=== PATIENT | female | born 1990 | race African-American/Black ===

== ENCOUNTER 2022-12-05 21:46 | Emergency (ER) | payer OTHER ==
--- OUTSIDE RECORDS SUMMARY | 2022-12-05 21:52 | XMS REPORT | Continuity of Care Document ---
:1990 Author Organization [facility] t Address [address] [place] [address]. [address] [place] [address] Support Name Relationship Address Phone Isela Keller Parent Unavailable [phone] Unavailable [id number] [place] [address] Healthcare Proxy, None O Unavailable Unavailab le Primary Caregiver O Unavailable Unavailable Nae Bonilla Unavailable Unavailable Angela Collins V [address] [facility] [id number] [place], [place] [phone] Trina Miranda O Unavailable Unavailable Manjula Lorenzana O Unavailable Unavailable Bortner, Denise O Unavailable Unavailable Fatoumataelva Bowie O Unavailable Unavailable Azul Mccarty V [address] [facility] [id number] [place] [address] Legal Guardian O Unavailable Unavailable Awilda Diehl, None O Unavailable Unavailabl e Cantrell, Monet O Unavailable Unavailable Blue, Gladys O [address] [place] [place] [address] Henderson, Altagracia O Unavailable Unavailable Montes (Legal Guardian), Besy O Unavailable Unav ailable Hernandez (Primary Caregiver), O Unavailable Unava ilable Zhang Hoytallero( Primary O [address] Unavailable Caregiver), [place] [address] unknown, unknown Mother [address] [facility] [address] [place] [address] UN Unavailable Unavailable Unavailable Nae Colón Mother [address] [facility] Unavailabl e [address] [place] [address] Care Team Providers Name Role Phone [facility] Primary Care Physician [phone] [email or web address] Attending Clinician Unavailable Sarika Veras MD Attending Clinician [phone] Diann PAIGE Mai Attending Clinician Unavailable Lesvia Langford MD Attending Clinician Allan Manuel Attending Clinician Unavailable Azul Mccarty Attending Clinician [phone] Corie Tidwell Attending Clinician Unavailable Shoshana Brewer RN Attending Clinician Unavailable Acacia Guerrero Attending Clinician Unavailable Destinee Gregory Attending Clinician Unavailable Tete GONZALEZC, Juan Attending Clinician Maricruz BAKER, Sherry Bentley Attending Clinician Juan BAKER, Rodolfo Rivas Attending Clinician Gardenia Nichols Attending Clinician Unavailable Angela Collins Attending Clinician [phone] Valeri Ibarra Attending Clinician [phone] Erkia Cruz Attending Clinician [phone] SUDHAKAR HALEY Attending Clinician Unavailable Charla Orozco LCSW Attending Clinician Unavailable Annel Tidwell Attending Clinician [phone] Shelia De La Cruz Attending Clinician Unavailable Amelie Pratt Attending Clinician [phone] Susana Joya Attending Clinician Unavailable Susan Clinton Attending Clinician Unavailable Aziza Otero Attending Clinician Unavailable Chichi Clinton Attending Clinician Unavailable Teodora Siddiqui Attending Clinician Unavailable Rishi Garza Attending Clinician [phone] Fatoumata Sanchez Attending Clinician Unavailable Soraida Caban Attending Clinician Unavailable Anna Gonzalez Attending Clinician Unavailable Dia Carter Attending Clinician [phone] Awilda Norman Attending Clinician Unavailable Sonido Caban Attending Clinician [phone] Anjali Bowie Attending Clinician Unavailable Yi Gonzalez Attending Clinician Unavailable Jessica Duff Attending Clinician Unavailable Candelaria Ram Attending Clinician [phone] Rona Ricardo Attending Clinician Unavailable Sraa Gotti Attending Clinician Unavailable Anju Cantu Attending Clinician Unavailable Nicole Kathleen Attending Clinician Unavailable Jaya Cantu Attending Clinician Unavailable Alanna Pop Attending Clinician Unavail able Esther Gudino Attending Clinician Unavailable Allan Manuel Admitting Clinician Unavailable Mclean MD, Sarika Unavailable [phone] Bibiana BAKER, Azul Unavailable [phone] Oz Camilo [facility], Charla Unavailable [phone] Santa BAKER, Amelie Unavailable [phone] King FORREST, Angela Unavailable [phone] Kayla BAKER, Rishi Unavailable [phone] Yo SIMEON Candelaria Carolynn Unavailable Payers Payer Name Policy Type Policy Number Effective Date Expiration Date S kelby [facility] STAR P [id number] 2019 00:00:00 [facility] MEDICAID [id number] 2019 STAR 00:00:00 [facility] STAR MC [id number] 2019 2019 [facility] 00:00:00 00:00:00 Community Health Problems Condition Condition Condition Status Onset Resolution Last Treating Co mments Source Name Details Category Date Date Treatment Clinician Date Overweight Condition Active 2022-03-27 Homer Veras 1- 16:26:[address] OB 00:00: 00 Condition Active 2021-032022-03-27 Homer Veras blues 0-25 16:07:[address] OB 00:00: 00 Contracept Condition Active 2021-032022-03-27 Homer Veras shayne 0-25 16:07:[address] OB counseling 00:00: 00 Maternal Condition Active 2021-032022-03-27 Rito S outwe care for 0-25 16:07:[address] OB unspecifie 00:00: d previous 00 Cough Condition Active 2021-08-20 Bibiana S outwe - 12:49:[address] OB 00:00: 00 BMI 27 - Condition Active 2021-07-16 Bibiana Cruzvazquez 27.9, 5-02 10:16:[address] OB adult 00:00: 00 ADJUSTMENT Condition Active 2021-07-16 Oz Arroyowe DISORDER,W 2-04 09:59:[address] O B / ANXIETY 00:00: [place] 00 , Charla ASCUS Condition Active 2020-04-14 Fabi Pratt uthwe Pap/+HPV 09-08 15:32:[address] OB -PP colpo 00:00: 3/07/05 00 MELANIE 3, Condition Active 2022-03-29 Mclean, Sveta thwe severe 09-08 12:22:[address] OB cervical 00:00: dysplasia 00 Abnormal Condition Active 2022-03-29 Bita Veras outhwe cervical 09-08 12:22:[address] OB Pap 00:00: 00 Hx of Condition Active 2021-07-16 Bita Mccarty outhwe syphilis 09-03 10:16:[address] OB -- 00:00: antepartum 00 2019/treat ed Chronic Chronic Disease Active [facility] pain pain 00:00: Hospita 00 l History of Past Illness Condition Condition Condition Status Onset Resolution Last Treating Co mments Source Name Details Category Date Date Treatment Clinician Date Condition Inactiv 2021-032022-03-27 2022-03-27 Homer Veras examinatio e 00:00:00 16:26:[address] OB n, normal 00:00: 00 Insufficie Condition Inactiv 2022-03-27 2022-03-27 Homer Veras nt e 07-16 00:00:00 16:26:[address] OB 00:00: care, 00 second trimester History of Condition Inactiv 2022-03-27 2022-03-27 Rito Cruzvazquez Preeclamps e 07-16 00:00:00 16:26:[address] OB ia 00:00: 00 Supervisio Condition Inactiv 2022-01-08 2022-01-08 Homer Veras n of other e 12-07 00:00:00 15:45:[address] OB high risk 00:00: pregnancie 00 s, third trimester Insufficie Condition Inactiv 2022-01-082022-01-08 Cruz Veras nt e 12-07 00:00:00 15:45:[address] OB 00:00: care, 00 third trimester Maternal Condition Inactiv 2022-01-08 2022-01-08 Cruz Veras care for e 08-30 00:00:00 15:45:28 Sarika s t OB unspecifie 00:00: d type 00 scar from previous delivery X3 37 Weeks Condition Inactiv 2021-12-14 2021-12-07 [place] Gestation e 12-07 00:00:00 10:06:[address] OB of 00:00: 00 Encounter Condition Inactiv 2021-12-07 2021-12-07 Cruz Mccarty for e 07-16 00:00:00 10:06:[address] OB supervisio 00:00: n of other 00 normal , second trimester 21 Weeks Condition Inactiv 2021-08-23 2021-08-20 [place] Gestation e 08-16 00:00:00 12:49:[address] OB of 00:00: 00 16 Weeks Condition Inactiv 2021-07-23 2021-07-16 [place] Gestation e 07-16 00:00:00 10:16:[address] OB of 00:00: 00 Contracept Condition Inactiv 2021-07-16 2021-07-16 [place] [facility] shayne e 04-14 00:00:00 10:16:[address] OB management 00:00: 00 BMI 28 - Condition Inactiv 2021-07-16 2021-07-16 [place] [facility] 28.9, e 04-14 00:00:00 10:16:[address] OB adult 00:00: 00 Gestationa Condition Inactiv 2021-07-16 2021-07-16 [place] [facility] l e -15 00:00:00 10:16:[address] OB hypertensi 00:00: on, 00 unspecifie d trimester Condition Inactiv 2019-032021-07-16 2021-07-16 [place] , routine e 03-25 00:00:00 10:16:[address] OB follow-up 00:00: 00 38 weeks Condition Inactiv 2020-04-14 2020-04-14 Homer Pratt gestation e 03-31 00:00:00 15:32:[address] OB of 00:00: 00 Anemia in Condition Inactiv 2019-032020-04-14 2020-04-14 Homer Pratt , e -24 00:00:00 15:32:[address] OB third 00:00: trimester 00 Condition Inactiv 2020-04-14 2020-04-14 Santa left Homer ultrasound e 11-28 00:00:00 15:32:[address] OB marker 00:00: with 00 echogenic cardiac focus left-NIPS WNL Human Condition Inactiv 2020-04-14 2020-04-14 Homer Pratt papilloma e 09-08 00:00:00 15:32:[address] OB virus test 00:00: positive 00 Hx of Condition Inactiv 2020-04-14 2020-04-14 Homer Pratt preeclamps e 6-16 00:00:00 15:32:[address] OB ia 00:00: 00 BMI 26 - Condition Inactiv 2020-04-14 2020-04-14 Homer Pratt 26.9, e 6-16 00:00:00 15:32:[address] OB adult 00:00: 00 Gestation Condition Inactiv 2020-03-31 2020-03-31 Homer Collins period e 1-08 00:00:00 11:32:[address] OB greater 00:00: than or 00 equal to 37 weeks UTI, E. Condition Inactiv 2019-032020-03-24 2020-03-24 Homer Collins coli e 2-18 00:00:00 11:15:[address] OB 00:00: 00 36 Weeks Condition Inactiv 2019-032020-03-24 2020-03-24 Homer Collins Gestation e 04-06 00:00:00 11:15:[address] OB of 00:00: 00 Nausea Condition Inactiv 2019-2020-02-05 2020-02-05 DiCrama Coronel e 10-05 00:00:00 12:10:04 , Rishi st OB 00:00: 00 Otitis Condition Inactiv 2020-02-05 2020-02-05 DiCrama [facility] externa, e 08-30 00:00:00 12:10:04 , Rishi s t OB other 00:00: 00 28 Weeks Condition Inactiv 2019-2020-01-31 2020[facility]01-[facility]25 00:00:00 13:46:35 , Candelaria st OB of 00:00: Weust 00 22 weeks Condition Inactiv 2020-01-24 2020-01-24 [facility] gestation e 12-14 00:00:00 13:46:35 , Candelaria st OB of 00:00: Weust 00 Supervisio Condition Inactiv 2020-01-24 2020-01-24 [facility] n of other e 11-28 00:00:00 13:46:35 , Candelaria st OB high risk 00:00: Weust pregnancie 00 s, second trimester Supervisio Condition Inactiv 2019-12-15 2019-12-15 [facility] n high e 08-30 00:00:00 10:04:[address] OB risk 00:00: , 00 first trimester 20 Weeks Condition Inactiv 2019-12-06 2019-11-29 [facility] Gestation e 11-28 00:00:00 09:33:38 , Candelaria st OB of 00:00: Weust 00 12 weeks Condition Inactiv 2019-11-29 2019-11-29 [facility] gestation e 10-05 00:00:00 09:33:38 , Candelaria st OB of 00:00: Weust 00 9 weeks Condition Inactiv 2019-2019-10-06 2019-10-06 Cruz Collins gestation e 08-30 00:00:00 10:51:[address] OB of 00:00: 00 Allergies, Adverse Reactions, Alerts Allergy Allergy Status Severity Reaction(s) Onset Inactive Treating Comm ents Source Name Type Date Date Clinician No Known DA Active [facility] 9- Allergie 00:00: s 00 No Known DA Active [facility] 1-15 Allergie 00:00: s 00 Social History Social Habit Start Date Stop Date Quantity Comments Source History SDOH Alcohol Meth odist Std Drinks Hospital History SDOH Alcohol Meth odist [facility] ASSERTION [facility] Sexual orientation [facility] passive cigarette 2022-07-11 2022-07-11 No [facility] smoke exposure 09:54:00 09:54:00 [facility] if the patient is 2022-07-11 2022-07-11 No [facility] using/has used a 09:54:00 09:54:00 Communit [facility] vaping item, Health Current, Former, Never Used, Not asked PHQ2 Questionairre 2022-07-11 2022-07-11 [facility] Score 09:54:00 09:54:00 [facility] assessment of health 2022-07-11 2022-07-11 Adequate [facility] literacy (NCQA [facility] 09:54:00 09:54:00 [facility] 2014 Standards, Health 3C10) is there any chance 2022-07-11 2022-07-11 No Leg[facility] y that you could be 09:54:00 09:54:00 Communi ty ? Health sexual orientation 2022-07-11 2022-07-11 Heterosexual [facility] 09:54:00 09:54:00 [facility] number of children 2022-07-11 2022-07-11 [facility] 09:54:00 09:54:00 [facility] History of Social 2022-05-06 2022-05-[address] function 00:00:00 00:00:00 Hospital Alcohol intake 2022-05-06 2022-05-06 Ex-drinker [facility] 00:00:00 00:00:00 (finding) Hospital drug use 2022-04-03 2022-04-03 Never [facility] 09:59:53 09:59:53 [facility] alcohol use 2022-04-03 2022-04-03 Never [facility] 09:59:53 09:59:53 [facility] social history E&M 2022-04-03 2022-04-03 Single since [facility] 09:59:53 09:59:53 03/31/20. [facility] Temporary lives Health with her mom and sister and . Her 2 other children 7, 6 y/o are with their father since baby was born. Recently from [place]. No DVMother: "It's getting better."Sister: "my younger best friend."Not homeless. City: [facility]. Pt lives with her mother and sister 22 y.o. and 1 m.o. daughter.Not employed. N/ASex at : Female. Sexual orientation: Heterosexual. Gender identity: Female. Gender of partner(s): Male. Age of first sexual intercourse: 14. Sexually Active: No. N/A"I teach dance. I love cars and sports. I'm openminded, I'd like to experience a lot of things, I just don't know exactly what yet."Denies tob/EtOH/drug use social history 2022-04-03 2022-04-03 reviewed today [facility] reviewed E&M 09:59:53 09:59:53 [facility] condom use 2022-01-08 2022-01-08 Never [facility] 14:53:28 14:53:28 [facility] number of sexual 2022-01-08 2022-01-08 [facility] partners in last 14:53:28 14:53:28 [facility] y year Health Ever had sexual 2022-01-08 2022-01-08 Yes [facility] intercourse? 14:53:28 14:53:28 [facility] time of call 2021-11-30 2021-11-30 11/30/2021 9:15 AM [facility] 09:15:15 09:15:15 [facility] albumin, serum 2021-07-16 2021-07-16 3.8 g/dL [facility] 10:21:00 10:21:00 [facility] History SDOH Alcohol 2020-05-06 2020-05-06 1 Meth odist Frequency 00:00:00 00:00:00 Hospital home/family 2020-04-19 2020-04-19 Apartment. 1 [facility] situation, 11:14:40 11:14:40 [facility] Health family support 2020-04-19 2020-04-19 Temporary lives Legac y 11:14:40 11:14:40 with her mom and Communit y sister and Health . Her 2 other children 7, 6 y/o are with their father since baby was born. Recently from [place]. No DV total number of 2020-04-14 2020-04-14 [facility] lifetime sexual 14:38:36 14:38:36 Community partners Health cat exposure during 2019-08-31 2019-08-31 no Legac y 11:51:19 11:51:19 [facility] Health Have you traveled to 2019-08-31 2019-08-31 no Lega cy any zika virus 11:51:19 11:51:19 Community infected areas? Health Sex Assigned At [birth year] [facility] 00:00:00 00:00:00 Hospital Smoking Status Start Date Stop Date Source Tobacco smoking consumption unknown [facility] Never smoked tobacco (finding) L egacy [facility] Medications Ordered Filled Start Stop Current Ordering Indication Dosage Frequency Signature Comments Components Source Medication Medication Date Date Medication? Clinician (SIG) Name Name MACIELMICHELLERIANNA 2021-03 Yes Sarika 1 Insert 1 Cruzwe (ETONOGESTR 0-25 Rito BAK[address] ring into st OB EL-ETHINYL 00:00: vagina for ESTRADIOL) 00 3 weeks. 0.12-0.015 Then MG/24HR remove for RING one week. Repeat each month amoxicillin 2021-03- No 1{tbl} Q12H Take 1 M ethodi -pot 0-19 10-[address] clavulanate 00:00: 04:59 mouth Hosp connie (AUGMENTIN) 00 :00 every 12 l 875-125 mg (twelve) per tablet hours for 10 days. acetaminoph 2021-03 No 1000mg Q6H Take 2 M ethodi en (Tylenol 0-19 10-[address] Extra 00:00: 04:59 (1,000 mg Hospit a Strength) 00 :00 total) by l 500 MG mouth tablet every 6 (six) hours as needed for mild pain or moderate pain for up to 7 days. ibuprofen 2021-03 No 600mg Q6H Take 1 Meth valencia (ADVIL) 600 0-19 10-[address] MG tablet 00:00: 04:59 (600 mg Hosp connie 00 :00 total) by l mouth every 6 (six) hours as needed for mild pain for up to 7 days. VITAFOL-ONE Yes Azul 1 Take 1 S outhwe ( 07-16 Bibiana BAK[address] capsule by st OB VIT-FEPOLY- 00:00: mouth once FA-DHA) 00 a day 29-1-200 MG CAPS ASPIRIN EC Azul 1 Take 1 S outhwe (ASPIRIN) 07-16 10-25 Bibiana BAKER tablet by st OB 81 MG TBEC 00:00: 00:00 mouth once 00 :00 a day amoxicillin 2020-03- No 875mg Q.5D Take 1 Me thodi (AMOXIL) 03-[address] 875 MG 00:00: 05:59 (875 mg Hospita tablet 00 :00 total) by l mouth 2 (two) times a day for 10 days. amoxicillin 2020-03 No 875mg Q.5D Take 1 Me thodi (AMOXIL) 03-[address] 875 MG 00:00: 05:59 (875 mg Hospita tablet 00 :00 total) by l mouth 2 (two) times a day for 10 days. ibuprofen 2020-03- No 600mg Q8H Take 1 Meth valencia (ADVIL) 600 03-31- tablet st MG tablet 00:00: 05:59 (600 mg Hosp connie 00 :00 total) by l mouth every 8 (eight) hours as needed for mild pain for up to 5 days. HYDROcodone 2020-03- No [id number] 1{tbl} Q8H Take 1 Methodi -acetaminop -15 - tablet by st hen (NORCO) 00:00: 05:59 mouth Hosp [facility] 5-325 mg 00 :00 every 8 l per tablet (eight) hours as needed for moderate pain for up to 5 days .acute pain. Max Daily Amount: 3 tablets ibuprofen 2020-03- No 600mg Q8H Take 1 Meth valencia (ADVIL) 600 -15 - tablet st MG tablet 00:00: 05:59 (600 mg Hosp connie 00 :00 total) by l mouth every 8 (eight) hours as needed for mild pain for up to 5 days. HYDROcodone 2020-03 No [id number] 1{tbl} Q8H Take 1 Methodi -acetaminop 1-15 11-[address] hen (NORCO) 00:00: 05:59 mouth Hosp [facility] 5-325 mg 00 :00 every 8 l per tablet (eight) hours as needed for moderate pain for up to 5 days .acute pain. Max Daily Amount: 3 tablets NUVARING No Valeri Insert per Homer (ETONOGESTR 05-25 Fred BAKER vagina for st OB EL-ETHINYL 00:00: 00:00 3 weeks, ESTRADIOL) 00 :00 then 0.12-0.015 remove for MG/24HR one week. RING Repeat each month ibuprofen No 400mg Q8H Take 1 Meth valecnia (ADVIL) 400 2-20 11-[address] MG tablet 00:00: 00:00 (400 mg Hosp [facility] 00 :00 total) by l mouth every 8 (eight) hours as needed for moderate pain. ibuprofen No 400mg Q8H Take 1 Meth valencia (ADVIL) 400 2-20 11-[address] MG tablet 00:00: 00:00 (400 mg Hosp [facility] 00 :00 total) by l mouth every 8 (eight) hours as needed for moderate pain. PROCARDIA 2021- No Amelie 1{Table 1xD Take 1 S outhwe XL 04-14 Monthy t} tablet by st OB (NIFEDIPINE 00:00: 00:00 mouth once ) 30 MG 00 :00 a day [id number] (CEPHALEXIN 2019-03 No Sonido 1{Table 4xD 1 tablet Southwe ) 500 MG 05-04 Pappadas t} by mouth st OB TABS 00:00: 00:00 MD every 6 00 :00 hours for 7 days (FERROUS 2019-03 No Rishi 1{Table 1xD 1 tablet Southwe SULFATE) 04-09 DiClemente t} by mouth st OB 325 (65 Fe) 00:00: 00:00 MD daily MG TABS 00 :00 ADULT 2020- No Angela 1{Table 1xD take 1 Southwe ASPIRIN 10-05 Dennis [facility] t} tablet By s t OB REGIMEN 00:00: 00:00 Mouth (ASPIRIN) 00 :00 Every Day 81 MG TBEC ADULT 2020- No Angela 1 1xD take 1 Sveta we ASPIRIN 10-05 Dennis NP tablet By s t OB REGIMEN 00:00: 00:00 Mouth (ASPIRIN) 00 :00 Every Day 81 MG TBEC CITRANATAL 2021- No 1 1 tablet So uthwe HARMONY 08-30- by mouth st OB 27-1-260 MG 00:00: 00:00 once a day CAPS 00 :00 CORTISPORIN 2019- No use 4 Sout hwe OTIC 08-[address] OB SUSPENSION 00:00: 00:00 ear Four (NEOMYCIN-C 00 :00 Times a OL- Day ONZONIUM) Vital Signs Vital Name Observation Time Observation Value Comments Source temperature E&M 2022-07-11 09:54:00 98.7 [degF] [facility] blood pressure, 2022-07-11 09:54:00 95 mm[Hg] [facility] diastolic, second Health observation blood pressure, 2022-07-11 09:54:00 146 mm[Hg] [facility] systolic, second Health observation temperature site 2022-07-11 09:54:00 oral Lega [facility] Health respiratory rate E&M 2022-07-11 09:54:00 18 /min [facility] pulse rate 2022-07-11 09:54:00 83 /min [facility] BMI (body mass 2022-07-11 09:54:00 n/a [facility] index) [facility] Health Body Mass Index 2022-07-11 09:54:00 29.48 kg/m2 [facility] ([facility]) Health weight E&M 2022-07-11 09:54:00 158 [lb_av] [facility] weight in kilograms 2022-07-11 09:54:00 71.82 kg L [facility] E& Health height in 2022-07-11 09:54:00 156.21 cm [facility] centimeters E&M Health Systolic blood 2022-05-06 20:21:12 150 mm[Hg] [facility] Diastolic blood 2022-05-06 20:21:12 108 mm[Hg] [facility] pressure Hospital Heart rate 2022-05-06 20:21:12 86 /min [facility] Body temperature 2022-05-06 20:21:12 36.78 Sandra [facility] Respiratory rate 2022-05-06 20:21:12 20 /min [facility] Body height 2022-05-06 20:21:12 157.5 cm [facility] Body weight 2022-05-06 20:21:12 68.04 kg [facility] BMI 2022-05-06 20:21:12 27.44 kg/m2 [facility] Oxygen saturation in 2022-05-06 20:21:12 98 /min [facility]terial blood by Hospital Pulse oximetry temperature E&M 2022-04-03 09:59:53 98.0 [degF] [facility] Health pulse rate 2022-04-03 09:59:53 87 /min [facility] Diastolic blood 2022-04-03 09:59:53 99 mm[Hg] [facility] Systolic blood 2022-04-03 09:59:53 158 mm[Hg] [facility] pressure Health respiratory rate E&M 2022-04-03 09:59:53 14 /min [facility] temperature site 2022-04-03 09:59:53 oral Lega [facility] Health BMI (body mass 2022-04-03 09:59:53 n/a [facility] index) [facility] Health Body Mass Index 2022-04-03 09:59:53 28.78 kg/m2 [facility] ([facility]) Health height in 2022-04-03 09:59:53 [facility] E&M Health weight E&M 2022-04-03 09:59:53 154.25 [lb_av] [facility] Health weight in kilograms 2022-04-03 09:59:53 70.11 kg L [facility] E&M Health blood pressure, 2022-03-27 15:32:15 98 mm[Hg] [facility] Health observation blood pressure, 2022-03-27 15:32:15 152 mm[Hg] [facility] systolic, second Health observation pulse rate 2022-03-27 15:32:15 92 /min [facility] Health temperature E&M 2022-03-27 15:32:15 97.9 [degF] [facility] Health BMI (body mass 2022-03-27 15:32:15 n/a [facility] index) percentile Health Body Mass Index 2022-03-27 15:32:15 28.80 kg/m2 [facility] (Ratio) Health weight E&M 2022-03-27 15:32:15 154.38 [lb_av] [facility] Health weight in kilograms 2022-03-27 15:32:15 70.17 kg L [facility] E&M Health height in 2022-03-27 15:32:15 156.21 cm [facility] centimeters E&M Health Body Mass Index 2022-01-08 14:53:28 28.62 kg/m2 [facility] (Ratio) Health respiratory rate E&M 2022-01-08 14:53:28 13 /min [facility] Health blood pressure, 2022-01-08 14:53:28 90 mm[Hg] [facility] diastolic, second Health observation blood pressure, 2022-01-08 14:53:28 133 mm[Hg] [facility] systolic, second Health observation temperature site 2022-01-08 14:53:28 oral Lega [facility] Health pulse rate 2022-01-08 14:53:28 85 /min [facility] temperature E&M 2022-01-08 14:53:28 98.4 [degF] [facility] Health weight E&M 2022-01-08 14:53:28 153.4 [lb_av] [facility] Health height E&M 2022-01-08 14:53:28 61.5 [in_i] [facility] blood pressure, 2021-12-07 09:37:22 88 mm[Hg] [facility] diastolic Health blood pressure, 2021-12-07 09:37:22 140 mm[Hg] [facility] systolic Health pulse rate 2021-12-07 09:37:22 90 /min [facility] temperature E&M 2021-12-07 09:37:22 98.4 [degF] [facility] [facility] weight E&M 2021-12-07 09:37:22 167.6 [lb_av] [facility] 2021-12-07 09:37:22 61.5 [in_i] [facility] Body Mass Index 2021-12-07 09:37:22 31.27 kg/m2 [facility] pulse rate #1 2021-12-07 09:37:22 109 /min [facility] 2021-12-07 09:37:22 oral Lega cy [facility] temperature E&M 2021-08-16 11:24:34 98.3 [degF] [facility] pressure, 2021-08-16 11:24:34 78 mm[Hg] [facility] blood pressure, 2021-08-16 11:24:34 115 mm[Hg] [facility] systolic Health pulse rate 2021-08-16 11:24:34 88 /min [facility] weight E&M 2021-08-16 11:24:34 149 [lb_av] [facility] height E&M 2021-08-16 11:24:34 61.5 [in_i] [facility] Body Mass Index 2021-08-16 11:24:34 27.80 kg/m2 [facility] temperature site 2021-08-16 11:24:34 oral Lega cy [facility] blood pressure, 2021-07-16 09:08:02 73 mm[Hg] [facility] diastolic Health blood pressure, 2021-07-16 09:08:02 117 mm[Hg] [facility] systolic Health pulse rate 2021-07-16 09:08:02 89 /min [facility] temperature E&M 2021-07-16 09:08:02 98.8 [degF] [facility]&M 2021-07-16 09:08:02 146 [lb_av] [facility] height E&M 2021-07-16 09:08:02 61.5 [in_i] [facility] Body Mass Index 2021-07-16 09:08:02 27.24 kg/m2 [facility] 2021-07-16 09:08:02 oral Lega [facility] Systolic blood 2021-05-04 21:06:07 146 mm[Hg] Method [facility] Diastolic blood 2021-05-04 21:06:07 84 mm[Hg] [facility] Heart rate 2021-05-04 21:06:07 94 /min [facility] Body temperature 2021-05-04 21:06:07 36.67 Sandra [facility] Respiratory rate 2021-05-04 21:06:07 17 /min [facility] Oxygen saturation in 2021-05-04 21:06:07 99 /min [facility] blood by Hospital Pulse oximetry Body height 2021-05-04 21:04:00 157.5 cm [facility] Body weight 2021-05-04 21:04:00 63.504 kg [facility] BMI 2021-05-04 21:04:00 25.61 kg/m2 [facility] 2020-05-26 06:16:29 36.1\\S\\97 Weight 2020-05-26 06:16:29 92623.263\\S\\2384 Weight Measurement 2020-05-26 06:16:29 Standing Scale Method Respiratory 2020-05-26 06:16:29 No respiratory distress /min Pulse Rate 2020-05-26 06:16:29 78 /min blood pressure, 2020-04-14 14:38:36 94 mm[Hg] [facility] diastolic, second Health observation blood pressure, 2020-04-14 14:38:36 143 mm[Hg] [facility] observation pulse rate #2 2020-04-14 14:38:36 76 /min [facility] temperature E&M 2020-04-14 14:38:36 98.2 [degF] [facility] weight E&M 2020-04-14 14:38:36 151 [lb_av] [facility] height E&M 2020-04-14 14:38:36 61.5 [in_i] [facility] Body Mass Index 2020-04-14 14:38:36 28.17 kg/m2 [facility] Health pulse rate #1 2020-04-14 14:38:36 76 /min [facility] temperature site 2020-04-14 14:38:36 oral Lega [facility] Respiratory 2020-04-14 00:16:38 No respiratory distress /min Pulse Rate 2020-04-14 00:16:38 78 /min Temperature 2020-04-14 00:16:38 36.1\\S\\97 Weight 2020-04-14 00:16:38 19094.263\\S\\2384 Weight Measurement 2020-04-14 00:16:38 Standing Scale Method Pulse Rate 2020-04-13 13:50:36 78 /min Temperature 2020-04-13 13:50:36 36.1\\S\\97 Weight 2020-04-13 13:50:36 96345.263\\S\\2384 Weight Measurement 2020-04-13 13:50:36 Standing Scale Method WEIGHT 2020-04-13 13:48:00 67.734603 kg Initial DRG Weight: 2020-04-12 14:33:49 0.8871 Working DRG Weight: 2020-04-12 14:33:49 0.8871 OSEAS CHARGE Pulse 2020-04-12 14:33:49 Single Pulse Ox Oximetry /min NB Weight 2020-04-12 14:33:49 2320\\S\\81.836 Have you Lost Weight 2020-04-12 14:33:49 No Without Trying in the Past 6 Months? Attempted 2020-04-12 14:33:49 N Monitor Temp Source 2020-04-12 14:33:49 Temporal 02 Sat by Pulse 2020-04-12 14:33:49 99 /min Oximetry Body Mass Index 2020-04-12 14:33:49 28.9 Height 2020-04-12 14:33:49 157.48\\S\\62 Pulse Rate 2020-04-12 14:33:49 80 /min Pulse Strength 2020-04-12 14:33:49 Normal /min Pulse Assessment 2020-04-12 14:33:49 Palpation /min Method Respiratory Rate 2020-04-12 14:33:49 18 /min Respiratory Depth 2020-04-12 14:33:49 Normal /min Respiratory Effort 2020-04-12 14:33:49 Spontaneous /min Respiratory Pattern 2020-04-12 14:33:49 Normal /min Temperature 2020-04-12 14:33:49 36.7\\S\\98.1 Weight 2020-04-12 14:33:49 46227.594\\S\\2528 Weight Measurement 2020-04-12 14:33:49 Estimated by Method Patient Initial DRG Weight: 2020-04-03 20:01:12 0.8871 Working DRG Weight: 2020-04-03 20:01:12 0.8871 OSEAS CHARGE Pulse 2020-04-03 20:01:12 Single Pulse Ox Oximetry /min NB Weight 2020-04-03 20:01:12 2320\\S\\81.836 Have you Lost Weight 2020-04-03 20:01:12 No Without Trying in the Past 6 Months? Attempted 2020-04-03 20:01:12 N Monitor Temp Source 2020-04-03 20:01:12 Temporal 02 Sat by Pulse 2020-04-03 20:01:12 99 /min Oximetry Body Mass Index 2020-04-03 20:01:12 28.9 Height 2020-04-03 20:01:12 157.48\\S\\62 Pulse Rate 2020-04-03 20:01:12 80 /min Pulse Strength 2020-04-03 20:01:12 Normal /min Pulse Assessment 2020-04-03 20:01:12 Palpation /min Method Respiratory Rate 2020-04-03 20:01:12 18 /min Respiratory Depth 2020-04-03 20:01:12 Normal /min Respiratory Effort 2020-04-03 20:01:12 Spontaneous /min Respiratory Pattern 2020-04-03 20:01:12 Normal /min Temperature 2020-04-03 20:01:12 36.7\\S\\98.1 Weight 2020-04-03 20:01:12 45651.594\\S\\2528 Weight Measurement 2020-04-03 20:01:12 Estimated by Method Patient Initial DRG Weight: 2020-04-03 15:25:06 0.8871 Working DRG Weight: 2020-04-03 15:25:06 0.8871 OSEAS CHARGE Pulse 2020-04-03 15:25:06 Single Pulse Ox Oximetry /min NB Weight 2020-04-03 15:25:06 2320\\S\\81.836 Have you Lost Weight 2020-04-03 15:25:06 No Without Trying in the Past 6 Months? Attempted 2020-04-03 15:25:06 N Monitor Temp Source 2020-04-03 15:25:06 Temporal 02 Sat by Pulse 2020-04-03 15:25:06 99 /min Oximetry Body Mass Index 2020-04-03 15:25:06 28.9 Height 2020-04-03 15:25:06 157.48\\S\\62 Pulse Rate 2020-04-03 15:25:06 80 /min Pulse Strength 2020-04-03 15:25:06 Normal /min Pulse Assessment 2020-04-03 15:25:06 Palpation /min Method Respiratory Rate 2020-04-03 15:25:06 18 /min Respiratory Depth 2020-04-03 15:25:06 Normal /min Respiratory Effort 2020-04-03 15:25:06 Spontaneous /min Respiratory Pattern 2020-04-03 15:25:06 Normal /min Temperature 2020-04-03 15:25:06 36.7\\S\\98.1 Weight 2020-04-03 15:25:06 73739.594\\S\\2528 Weight Measurement 2020-04-03 15:25:06 Estimated by Method Patient Initial DRG Weight: 2020-04-03 04:56:18 0.8871 Working DRG Weight: 2020-04-03 04:56:18 0.8871 NB Weight 2020-04-03 04:56:18 2320\\S\\81.836 Have you Lost Weight 2020-04-03 04:56:18 No Without Trying in the Past 6 Months? Attempted 2020-04-03 04:56:18 N Monitor Temp Source 2020-04-03 04:56:18 Temporal 02 Sat by Pulse 2020-04-03 04:56:18 99 /min Oximetry Body Mass Index 2020-04-03 04:56:18 28.9 Height 2020-04-03 04:56:18 157.48\\S\\62 Pulse Rate 2020-04-03 04:56:18 85 /min Pulse Strength 2020-04-03 04:56:18 Normal /min Pulse Assessment 2020-04-03 04:56:18 Palpation /min Method Respiratory Rate 2020-04-03 04:56:18 18 /min Respiratory Depth 2020-04-03 04:56:18 Normal /min Respiratory Effort 2020-04-03 04:56:18 Spontaneous /min Respiratory Pattern 2020-04-03 04:56:18 Normal /min Temperature 2020-04-03 04:56:18 36.9\\S\\98.4 Weight 2020-04-03 04:56:18 88446.594\\S\\2528 Weight Measurement 2020-04-03 04:56:18 Estimated by Method Patient Initial DRG Weight: 2020-04-03 04:55:47 0.8871 Working DRG Weight: 2020-04-03 04:55:47 0.8871 NB Weight 2020-04-03 04:55:47 2320\\S\\81.836 Have you Lost Weight 2020-04-03 04:55:47 No Without Trying in the Past 6 Months? Attempted 2020-04-03 04:55:47 N Monitor Temp Source 2020-04-03 04:55:47 Temporal 02 Sat by Pulse 2020-04-03 04:55:47 99 /min Oximetry Body Mass Index 2020-04-03 04:55:47 28.9 Height 2020-04-03 04:55:47 157.48\\S\\62 Pulse Rate 2020-04-03 04:55:47 85 /min Pulse Strength 2020-04-03 04:55:47 Normal /min Pulse Assessment 2020-04-03 04:55:47 Palpation /min Method Respiratory Rate 2020-04-03 04:55:47 18 /min Respiratory Depth 2020-04-03 04:55:47 Normal /min Respiratory Effort 2020-04-03 04:55:47 Spontaneous /min Respiratory Pattern 2020-04-03 04:55:47 Normal /min Temperature 2020-04-03 04:55:47 36.9\\S\\98.4 Weight 2020-04-03 04:55:47 37109.594\\S\\2528 Weight Measurement 2020-04-03 04:55:47 Estimated by Method Patient NB Weight 2020-04-01 01:01:58 2320\\S\\81.836 Have you Lost Weight 2020-04-01 01:01:58 No Without Trying in the Past 6 Months? Attempted 2020-04-01 01:01:58 N Monitor Temp Source 2020-04-01 01:01:58 Temporal 02 Sat by Pulse 2020-04-01 01:01:58 100 /min Oximetry Body Mass Index 2020-04-01 01:01:58 28.9 Height 2020-04-01 01:01:58 157.48\\S\\62 Pulse Rate 2020-04-01 01:01:58 89 /min Respiratory Rate 2020-04-01 01:01:58 17 /min Respiratory Depth 2020-04-01 01:01:58 Normal /min Respiratory Effort 2020-04-01 01:01:58 Spontaneous /min Respiratory Pattern 2020-04-01 01:01:58 Normal /min Temperature 2020-04-01 01:01:58 36.2\\S\\97.2 Weight 2020-04-01 01:01:58 01052.594\\S\\2528 Weight Measurement 2020-04-01 01:01:58 Estimated by Method Patient NB Weight 2020-04-01 00:58:02 2320\\S\\81.836 Have you Lost Weight 2020-04-01 00:58:02 No Without Trying in the Past 6 Months? Attempted 2020-04-01 00:58:02 N Monitor Temp Source 2020-04-01 00:58:02 Temporal 02 Sat by Pulse 2020-04-01 00:58:02 100 /min Oximetry Body Mass Index 2020-04-01 00:58:02 28.9 Height 2020-04-01 00:58:02 157.48\\S\\62 Pulse Rate 2020-04-01 00:58:02 89 /min Respiratory Rate 2020-04-01 00:58:02 17 /min Respiratory Depth 2020-04-01 00:58:02 Normal /min Respiratory Effort 2020-04-01 00:58:02 Spontaneous /min Respiratory Pattern 2020-04-01 00:58:02 Normal /min Temperature 2020-04-01 00:58:02 36.2\\S\\97.2 Weight 2020-04-01 00:58:02 24760.594\\S\\2528 Weight Measurement 2020-04-01 00:58:02 Estimated by Method Patient NB Weight 2020-04-01 00:31:01 2320\\S\\81.836 Have you Lost Weight 2020-04-01 00:31:01 No Without Trying in the Past 6 Months? Attempted 2020-04-01 00:31:01 N Monitor Temp Source 2020-04-01 00:31:01 Temporal 02 Sat by Pulse 2020-04-01 00:31:01 100 /min Oximetry Body Mass Index 2020-04-01 00:31:01 28.9 Height 2020-04-01 00:31:01 157.48\\S\\62 Pulse Rate 2020-04-01 00:31:01 89 /min Respiratory Rate 2020-04-01 00:31:01 17 /min Respiratory Depth 2020-04-01 00:31:01 Normal /min Respiratory Effort 2020-04-01 00:31:01 Spontaneous /min Respiratory Pattern 2020-04-01 00:31:01 Normal /min Temperature 2020-04-01 00:31:01 36.2\\S\\97.2 Weight 2020-04-01 00:31:01 24697.594\\S\\2528 Weight Measurement 2020-04-01 00:31:01 Estimated by Method Patient WEIGHT 2020-03-31 16:39:00 71.637231 kg HEIGHT 2020-03-31 16:39:00 157.48 cm Body Mass Index 2020-03-31 16:04:46 28.9 Height 2020-03-31 16:04:46 157.48\\S\\62 Respiratory Depth 2020-03-31 16:04:46 Normal /min Respiratory Effort 2020-03-31 16:04:46 Spontaneous /min Respiratory Pattern 2020-03-31 16:04:46 Normal /min Weight 2020-03-31 16:04:46 50244.594\\S\\2528 Body Mass Index 2020-03-31 16:02:43 28.9 Height 2020-03-31 16:02:43 157.48\\S\\62 Respiratory Depth 2020-03-31 16:02:43 Normal /min Respiratory Effort 2020-03-31 16:02:43 Spontaneous /min Respiratory Pattern 2020-03-31 16:02:43 Normal /min Weight 2020-03-31 16:02:43 81022.594\\S\\2528 Body Mass Index 2020-03-31 15:55:32 28.9 Height 2020-03-31 15:55:32 157.48\\S\\62 Respiratory Depth 2020-03-31 15:55:32 Normal /min Respiratory Effort 2020-03-31 15:55:32 Spontaneous /min Respiratory Pattern 2020-03-31 15:55:32 Normal /min Weight 2020-03-31 15:55:32 94005.594\\S\\2528 Body Mass Index 2020-03-31 15:54:00 28.9 Height 2020-03-31 15:54:00 157.48\\S\\62 Respiratory Depth 2020-03-31 15:54:00 Normal /min Respiratory Effort 2020-03-31 15:54:00 Spontaneous /min Respiratory Pattern 2020-03-31 15:54:00 Normal /min Weight 2020-03-31 15:54:00 62078.594\\S\\2528 Body Mass Index 2020-03-31 15:33:32 28.9 Height 2020-03-31 15:33:32 157.48\\S\\62 Respiratory Depth 2020-03-31 15:33:32 Normal /min Respiratory Effort 2020-03-31 15:33:32 Spontaneous /min Respiratory Pattern 2020-03-31 15:33:32 Normal /min Weight 2020-03-31 15:33:32 91346.594\\S\\2528 Body Mass Index 2020-03-31 15:28:25 28.9 Height 2020-03-31 15:28:25 157.48\\S\\62 Respiratory Depth 2020-03-31 15:28:25 Normal /min Respiratory Effort 2020-03-31 15:28:25 Spontaneous /min Respiratory Pattern 2020-03-31 15:28:25 Normal /min Weight 2020-03-31 15:28:25 73980.594\\S\\2528 Body Mass Index 2020-03-31 15:27:22 28.9 Height 2020-03-31 15:27:22 157.48\\S\\62 Respiratory Depth 2020-03-31 15:27:22 Normal /min Respiratory Effort 2020-03-31 15:27:22 Spontaneous /min Respiratory Pattern 2020-03-31 15:27:22 Normal /min Weight 2020-03-31 15:27:22 10996.594\\S\\2528 Body Mass Index 2020-03-31 15:21:15 28.9 Height 2020-03-31 15:21:15 157.48\\S\\62 Respiratory Depth 2020-03-31 15:21:15 Normal /min Respiratory Effort 2020-03-31 15:21:15 Spontaneous /min Respiratory Pattern 2020-03-31 15:21:15 Normal /min Weight 2020-03-31 15:21:15 56226.594\\S\\2528 Body Mass Index 2020-03-31 15:02:14 28.9 Height 2020-03-31 15:02:14 157.48\\S\\62 Respiratory Depth 2020-03-31 15:02:14 Normal /min Respiratory Effort 2020-03-31 15:02:14 Spontaneous /min Respiratory Pattern 2020-03-31 15:02:14 Normal /min Weight 2020-03-31 15:02:14 14599.594\\S\\2528 Body Mass Index 2020-03-31 14:22:17 28.9 Height 2020-03-31 14:22:17 157.48\\S\\62 Weight 2020-03-31 14:22:17 76567.594\\S\\2528 WEIGHT 2020-03-31 14:21:00 71.491402 kg HEIGHT 2020-03-31 14:21:00 157.48 cm blood pressure, 2020-03-31 10:56:14 92 mm[Hg] [facility] diastolic, second Health observation blood pressure, 2020-03-31 10:56:14 146 mm[Hg] [facility] systolic, second Health observation pulse rate #2 2020-03-31 10:56:14 85 /min [facility] temperature E&M 2020-03-31 10:56:14 98.4 [degF] [facility] 2020-03-31 10:56:14 61.5 [in_i] [facility] 2020-03-31 10:56:14 158.6 [lb_av] [facility] Body Mass Index 2020-03-31 10:56:14 29.59 kg/m2 [facility] pulse rate #1 2020-03-31 10:56:14 85 /min [facility] temperature site 2020-03-31 10:56:14 oral Lega [facility] Health blood pressure, 2020-03-24 10:56:54 84 mm[Hg] [facility] blood pressure, 2020-03-24 10:56:54 128 mm[Hg] [facility] systolic Health pulse rate 2020-03-24 10:56:54 86 /min [facility] temperature E&M 2020-03-24 10:56:54 98.4 [degF] [facility] E&M 2020-03-24 10:56:54 159.8 [lb_av] [facility] height E&M 2020-03-24 10:56:54 61.5 [in_i] [facility] Body Mass Index 2020-03-24 10:56:54 29.81 kg/m2 [facility] temperature site 2020-03-24 10:56:54 oral Lega cy [facility] Health blood pressure, 2020-03-18 11:19:00 84 mm[Hg] [facility] diastolic Health blood pressure, 2020-03-18 11:19:00 130 mm[Hg] [facility] pulse rate 2020-03-18 11:19:00 81 /min [facility] temperature E&M 2020-03-18 11:19:00 97.9 [degF] [facility] height E&M 2020-03-18 11:19:00 61.5 [in_i] [facility] weight E&M 2020-03-18 11:19:00 162 [lb_av] [facility] Body Mass Index 2020-03-18 11:19:00 30.22 kg/m2 [facility] temperature site 2020-03-18 11:19:00 oral Lega cy [facility] Health blood pressure, 2020-03-01 10:41:33 79 mm[Hg] [facility] diastolic Health blood pressure, 2020-03-01 10:41:33 114 mm[Hg] [facility] systolic Health temperature E&M 2020-03-01 10:41:33 98.6 [degF] [facility] weight E&M 2020-03-01 10:41:33 159 [lb_av] [facility] height E&M 2020-03-01 10:41:33 61.5 [in_i] [facility] Body Mass Index 2020-03-01 10:41:33 29.66 kg/m2 [facility] temperature site 2020-03-01 10:41:33 oral Lega cy [facility] Health blood pressure, 2020-02-05 11:04:51 80 mm[Hg] [facility] diastolic Health blood pressure, 2020-02-05 11:04:51 118 mm[Hg] [facility] systolic Health pulse rate 2020-02-05 11:04:51 98 /min [facility] temperature E&M 2020-02-05 11:04:51 98.8 [degF] [facility] weight E&M 2020-02-05 11:04:51 157 [lb_av] [facility] height E&M 2020-02-05 11:04:51 61.5 [in_i] [facility] Body Mass Index 2020-02-05 11:04:51 29.29 kg/m2 [facility] temperature site 2020-02-05 11:04:51 oral Lega cy [facility] Health blood pressure, 2020-01-24 12:00:35 87 mm[Hg] [facility] diastolic Health blood pressure, 2020-01-24 12:00:35 135 mm[Hg] [facility] systolic Health pulse rate 2020-01-24 12:00:35 99 /min [facility] temperature E&M 2020-01-24 12:00:35 98.1 [degF] [facility] weight E&M 2020-01-24 12:00:35 155 [lb_av] [facility] height E&M 2020-01-24 12:00:35 61.5 [in_i] [facility] Body Mass Index 2020-01-24 12:00:35 28.92 kg/m2 [facility] temperature site 2020-01-24 12:00:35 oral Lega cy [facility] Health blood pressure, 2019-12-15 09:23:05 86 mm[Hg] [facility] diastolic Health blood pressure, 2019-12-15 09:23:05 131 mm[Hg] [facility] systolic Health pulse rate 2019-12-15 09:23:05 90 /min [facility] temperature E&M 2019-12-15 09:23:05 98.5 [degF] [facility] weight E&M 2019-12-15 09:23:05 155.2 [lb_av] [facility] height E&M 2019-12-15 09:23:05 61.5 [in_i] [facility] Body Mass Index 2019-12-15 09:23:05 28.95 kg/m2 [facility] temperature site 2019-12-15 09:23:05 oral Lega cy [facility] Health blood pressure, 2019-11-29 08:33:11 85 mm[Hg] [facility] diastolic Health blood pressure, 2019-11-29 08:33:11 121 mm[Hg] [facility] systolic Health pulse rate 2019-11-29 08:33:11 78 /min [facility] temperature E&M 2019-11-29 08:33:11 98.7 [degF] [facility] weight E&M 2019-11-29 08:33:11 150 [lb_av] [facility] height E&M 2019-11-29 08:33:11 61.5 [in_i] [facility] Body Mass Index 2019-11-29 08:33:11 27.98 kg/m2 [facility] temperature site 2019-11-29 08:33:11 oral Lega cy [facility] temperature E&M 2019-10-06 10:14:09 99.3 [degF] [facility] pulse rate 2019-10-06 10:14:09 105 /[facility] Health blood pressure, 2019-10-06 10:14:09 86 mm[Hg] [facility] diastolic Health blood pressure, 2019-10-06 10:14:09 126 mm[Hg] [facility] systolic Health weight E&M 2019-10-06 10:14:09 145.2 [lb_av] [facility] 2019-10-06 10:14:09 61.5 [in_i] [facility] Body Mass Index 2019-10-06 10:14:09 27.09 kg/m2 [facility] temperature site 2019-10-06 10:14:09 oral Lega cy [facility] Health blood pressure, 2019-09-10 11:16:48 88 mm[Hg] [facility] diastolic Health blood pressure, 2019-09-10 11:16:48 134 mm[Hg] [facility] systolic Health pulse rate 2019-09-10 11:16:48 82 /min [facility] Health temperature E&M 2019-09-10 11:16:48 98.9 [degF] [facility] Health weight E&M 2019-09-10 11:16:48 144.0 [lb_av] [facility] height E&M 2019-09-10 11:16:48 61.5 [in_i] [facility] Body Mass Index 2019-09-10 11:16:48 26.86 kg/m2 [facility] temperature site 2019-09-10 11:16:48 oral Lega [facility] Health blood pressure, 2019-08-31 11:51:19 91 mm[Hg] [facility] diastolic, second Health observation blood pressure, 2019-08-31 11:51:19 138 mm[Hg] [facility] systolic, second Health observation pulse rate 2019-08-31 11:51:19 82 /min [facility] temperature E&M 2019-08-31 11:51:19 99.2 [degF] [facility] weight E&M 2019-08-31 11:51:19 144.6 [lb_av] [facility] height E&M 2019-08-31 11:51:19 61.5 [in_i] [facility] Body Mass Index 2019-08-31 11:51:19 26.98 kg/m2 [facility] pulse rate #1 2019-08-31 11:51:19 96 /min [facility] temperature site 2019-08-31 11:51:19 oral Lega cy [facility] Procedures Procedure Date / Time Performing Clinician Source Performed CONIZATION CERVIX W/WO 2022-07-11 10:15:32 Sarika Veras [facility] 2022-07-11 09:58:59 Sarika Veras [facility] Infectious Disease - 2022-04-10 15:36:48 Sarika Veras [facility] Internal [facility] Colposcopy w/ Biopsy 2022-03-27 16:21:49 Sarika Veras [facility] Urine - In 2022-03-27 15:50:28 Sarika Veras [facility] Behavioral Health - 2022-01-08 15:41:03 Sarika Veras [facility] Therapy Health Vaccines Ordered - Print 2022-01-08 15:41:03 Sarika Veras [facility] Consent/Declination Health Forms ED REFERRAL TO [place] 2022-01-02 18:52:51 Laquita Huang [facility] ZOROASTRIAN PHYSICIAN Javon PACHECO (PCP) URINE CULTURE 2021-05-04 21:11:00 [facility], URINE 2021-05-04 21:11:00 [facility] 2021-05-04 21:11:00 [facility] - 2020-04-20 13:05:18 Oz Rosen [facility] [employer] [facility] Charla [facility] Behavioral Health - 2020-04-20 13:05:18 Oz [facility] Therapy [facility] Diagnostic evaluation 2020-04-20 13:03:43 Oz Perkins [facility] (no medical) - [id number] [facility] Integrated Behavioral 2020-04-14 15:30:24 Amelie Pratt [facility] Health Assessment (IBH) Health Urinalysis - Dip only - 2020-04-14 15:00:08 Amelie Pratt [facility] In House Health Vaccines Ordered - Print 2020-02-05 11:42:07 Rishi Garza [facility] Consent/Declination Health Forms Ultrasound, transvaginal 2020-01-24 13:46:06 Candelaria Ram [facility] Ultrasound, transvaginal 2019-11-29 09:33:03 Candelaria Ram [facility] IM Injection of 2019-10-20 15:42:48 Nicole Kathleen Commu nity Antibiotic Health Injection, penicillin g 2019-10-20 15:42:48 Nicole Kathleen [facility] benzathine, 1.2 mu Health IM Injection of 2019-10-14 08:53:45 Nicole Kathleen Commu nity Antibiotic Health Injection, penicillin g 2019-10-14 08:53:45 Nicole Kathleen [facility] benzathine, 1.2 mu Health IM Injection of 2019-10-06 11:54:34 Nicole Kathleen Commu nity Antibiotic Health Injection, penicillin g 2019-10-06 11:54:34 Nicole Kathleen [facility] benzathine, 1.2 mu Health Ultrasound of 2019-09-10 11:39:13 PappadasSonido y [facility] Uterus- 1st trimester Health IM Injection of 2019-09-06 13:29:17 Nicole Kathleen Commu nity Antibiotic Health Injection, penicillin g 2019-09-06 13:29:17 Nicole Kathleen [facility] benzathine, 1.2 mu Health Plan of Care Planned Activity Planned Date Details Comments Source Future Scheduled 2022-12-05 COVID-19 [facility] 21:49:12 (#1) [code = COVID-19 VACCINE (#1)] Future Scheduled 2022-12-05 [facility] 21:49:12 screening (procedure) [code = 276276868] Future Scheduled 2022-12-05 Screening for [facility] Test 21:49:12 malignant neoplasm of cervix (procedure) [code = 706988301] Future Scheduled 2022-12-05 [facility]ACCINE [facility] 21:49:12 (#1) [code = INFLUENZA VACCINE (#1)] Future Scheduled 2021-11-14 [facility]IS B [facility] 19:41:08 VACCINES (1 of 3 - 3-dose series) [code = HEPATITIS B VACCINES (1 of 3 - 3-dose series)] Future Scheduled 2021-11-14 COVID-19 [facility]ACCINE [facility] 19:41:08 (#1) [code = COVID-19 VACCINE (#1)] Future Scheduled 2021-11-14 [facility] Test 19:41:08 screening (procedure) [code = 942263817] Future Scheduled 2021-11-14 Scre[facility] Test 19:41:08 malignant neoplasm of cervix (procedure) [code = 755043968] Future Scheduled 2021-11-14 [facility]INE [facility] 19:41:08 [code = INFLUENZA VACCINE] Future Scheduled 2021-11-14 [facility] B [facility] 19:41:08 VACCINES (1 of 3 - 3-dose series) [code = HEPATITIS B VACCINES (1 of 3 - 3-dose series)] Future Scheduled 2021-11-14 COVID-19 [facility]ACCINE [facility] 19:41:08 (#1) [code = COVID-19 VACCINE (#1)] Future Scheduled 2021-11-14 [facility] Test 19:41:08 screening (procedure) [code = 614653352] Future Scheduled 2021-11-14 [facility] Test 19:41:08 malignant neoplasm of cervix (procedure) [code = 358982886] Future Scheduled 2021-11-14 INFLUENZA VACCINE [facility] Test 19:41:08 [code = INFLUENZA VACCINE] Encounters Start End Encounter Admission Attending Care Care Encounter Source Date/Time Date/Time Type Type Clinicians Facility Department ID 2022-07-24 Outpatient [email or web address].[facility] Legacy 15:17:07 [id number] Formerly [facility] 2022-06-16 Outpatient l[facility] Legacy 05:03:38 [id number] Formerly [facility] 2022-06-07 Outpatient lc.[facility]arrant [facility] Legacy 22:37:42 [id number] Formerly [facility] 2022-05-17 Outpatient l[facility] Legacy 09:25:02 [id number] Formerly [facility] 2022-05-11 Outpatient lc.[facility]arrant [facility] Legacy 13:31:02 [id number] Formerly [facility] 2022-04-12 Outpatient lc.[facility] Legacy 10:13:05 [id number] Formerly [facility] 2022-03-29 Outpatient l[facility] Legacy 10:03:03 [id number] Formerly [facility] 2022-03-26 Outpatient lc.[facility] Legacy 22:57:04 Formerly [facility] 2022-03-19 Outpatient l[facility].[place] Legacy 14:17:42 Formerly [facility] 2022-02-25 Outpatient [email or web address].[place] [id number] Legacy 20:32:51 Formerly [facility] 2022-01-11 Outpatient l[facility].[place] Legacy 10:11:05 Formerly [facility] 2022-01-06 Outpatient l[facility].[place] [id number] Legacy 22:19:05 Formerly [facility] 2021-09-04 Outpatient [facility] [id number] [place] 12:48:[id number] [place] [address] 2021-08-28 Outpatient [facility] [id number] [place] 12:05:19 [id number] [facility] 2021-08-08 Outpatient [facility] [id number] [place] 09:40:34 [id number] [facility] 2021-08-02 Outpatient [facility] [id number] [place] 09:23:49 [id number] [facility] 2021-08-01 Outpatient [facility] [id number] [place] 10:19:35 [id number] [facility] 2021-07-20 Outpatient [facility] [id number] [place] 12:52:46 [id number] [facility] 2020-03-31 Inpatient [facility] [id number] [facility] 15:21:00 90 2022-07-11 2022-07-11 In-person Sarika Veras Legarnold Encounter/ Legacy 00:00:00 00:00:00 encounter Corie Tidwell [id number] [facility]ly [facility] [id number] photo retoucher Health 2022-07-11 2022-07-11 In-person Sarika Veras [facility] Legacy [id number] Legacy 00:00:00 00:00:00 encounter Corie Tidwell [id number] [facility] photo retoucher Health 2022-05-06 2022-05-06 Emergency 1.2.840.1 [id number] [facility] 14:18:00 14:27:[address] 3.430.2.7 Hospit a .3.191247 l .8 2022-05-06 2022-05-06 Emergency [facility] [id number] [place] [address] 00:00:00 00:00:[address] 2022-04-03 2022-04-03 In-person Sarika Veras [facility] Belinda Ri dge [id number] Legacy 00:00:00 00:00:00 encounter Suly Wyman LINE SERVICE PERSON 89735 Commun ty Health 2022-04-03 2022-04-03 In-person Sarika Veras Belinda Ri dge Encounter/ Legacy 00:00:00 00:00:00 encounter Suly Wyman LINE SERVICE PERSON [id number] 4502 [facility] [id number] Health 2022-03-27 2022-03-27 In-person RitoTalyaSarika [facility] Belinda Ri dge Encounter/ Legacy 00:00:00 00:00:00 encounter AburtoRhondata LINE SERVICE PERSON 1989 [id number] [facility] [id number] Health 2022-03-27 2022-03-27 In-person Adrianna Verasine [facility] Belinda Ri dge [id number] Legacy 00:00:00 00:00:00 encounter Carmen Aburto LINE SERVICE PERSON 3011 1 Formerly [facility] 2022-01-08 2022-01-08 In-person Adrianna Verasine [facility] Belinda Ri dge Encounter/ Legacy 00:00:00 00:00:00 encounter Amara Barry LINE SERVICE PERSON [id number] 6909 [facility] [id number] [facility] Carmen Aburto 2022-01-02 2022-01-02 Emergency Primitivo, 1.2.840.1 [id number] [id number] [facility] 11:15:00 14:14:[address] 3.430.2.7 Hospit a .3.359191 l .8 2022-01-02 2022-01-02 Emergency PRIMITIVO, [facility] [id number] [place] [address] 00:00:00 00:00:[address] 2022-01-02 2022-01-02 Travel 1.2.840.1 1.2.464.689 6393 [id number] [facility] 00:00:00 00:00:[address] 3.430.2.7 0.2.7.3.698 spita .3.698519 084.8 l .8 2021-12-07 2021-12-10 Inpatient Urgent Harms, [facility] [id number] [facility] 18:41:00 14:45:00 Allan Service 08 2021-12-07 2021-12-07 Inpatient [facility] [id number] [facility] 18:41:00 12:28:00 2021-12-07 2021-12-07 Office Azul Mccarty [facility] E ncounter/ Legacy 00:00:00 00:00:00 Visit Nikolas Tidwelli [id number] C ommuni [id number] [facility] 2021-12-07 2021-12-07 In-person Azul Mccarty [facility] Belinda R idge [id number] Legacy 00:00:00 00:00:00 encounter TidwellNikolasi LINE SERVICE PERSON 75110 Co mmuni [facility] 2021-08-16 2021-08-20 In-person Azul Mccarty [facility] Belinda R idge [id number] Legacy 00:00:00 00:00:00 encounter Judi Sheldon LINE SERVICE PERSON 20489 Suly Cooper [facility] 2021-07-20 2021-07-20 Telephone Shoshana Brewer 1.2.84 0.114 [id number] [place] 00:00:00 00:00:00 Shoshana Brewer 350.1.13.58 [facility] 9.2.7.2.686 [place] [id number] 0 2021-07-16 2021-07-16 Office Azul Mccarty [facility] E ncounter/ Legacy 00:00:00 00:00:00 Visit Acacia [facility]errero [id number] [facility] Gregory[facility] [id number] [facility] 2021-07-16 2021-07-16 In-person Azul Mccarty [facility] Joannachristopher R idge [id number] Legacy 00:00:00 00:00:00 encounter Chica Bauer LINE SERVICE PERSON 205 02 [facility] D[facility] 2021-05-04 2021-05-04 Emergency Juan Epstein 1.2.840.1 [id number] 002 [id number] [facility] 15:13:00 16:45:[address] 3.430.2.7 Hospit a .3.908154 l .8 2021-01-29 2021-01-29 Emergency Martinez, 1.2.840.1 [id number] 2100 [id number] [facility] 00:42:00 01:33:00 Rodolfo 07041.1.1 921 Rob 3.430.2.7 Hospit a .3.144613 l .8 2020 2020 Outpatient COH COH PIJFHMV LKY COH 00:00:00 00:00:00 - 3 2020-06-02 2020-06-02 Office [facility]/ Legacy 00:00:00 00:00:00 Visit Gardenia Castaneda [id number] Com lucas [id number] Health 2020-05-25 2020-05-25 Office [facility] Encounter/ Legacy 00:00:00 00:00:00 Visit Angela [id number] Communi 808005 Health 2020-05-25 2020-05-25 Office [facility] Encounter/ Legacy 00:00:00 00:00:00 Visit Valeri [id number] Com lucas [id number] Health 2020-05-11 2020-05-11 Office Nancy [facility] Encounter / Legacy 00:00:00 00:00:00 Visit Erika [id number] Com lucas [id number] Health 2020-05-06 2020-05-06 Emergency SUDHA, [facility] 064 [id number] 29327 [place] 00:00:00 00:00:[address] S[address] 2020-04-19 2020-04-20 In-person Charla Orozco [facility] [id number] Legacy 00:00:00 00:00:00 encounter Annel [facility] 89666 Shelia Julien [facility] Health 2020-04-19 2020-04-19 Office [facility] Encounter/ Legacy 00:00:00 00:00:00 Visit Annel Tidwell [id number] Shelia Julien 010142 [facility] Health 2020-04-14 2020-04-14 Office GAYATHRI Pratt [facility] Encounter/ Legacy 00:00:00 00:00:00 Visit Amelie [id number] Com lucas [id number] ty Health 2020-04-14 2020-04-14 Office Amelie Pratt [facility] Enco unter/ Legacy 00:00:00 00:00:00 Visit Susana Joya [id number] Marcus ClintonSusan 859410 ty Health 2020-04-14 2020-04-14 Office Santa [facility] Encounter/ Legacy 00:00:00 00:00:00 Visit Amelie [id number] Com lucas [id number] ty Health 2020-04-14 2020-04-14 In-person MonthAmelie lynch [facility] [id number] Legacy 00:00:00 00:00:00 [place] [address] Marcus ClintonSusan ty Health 2020-04-13 2020-04-13 Outpatient Harms, [facility] [id number] [facility] 13:45:00 13:45:00 Allan 27 2020-04-10 2020-04-10 Office King [facility] Encounter/ Legacy 00:00:00 00:00:00 Visit Angela [id number] [facility] 0649[facility] 2020-04-08 2020-04-08 Office King [facility] Encounter/ Legacy 00:00:00 00:00:00 Visit Angela [id number] [facility] 862395 ty Health 2020-04-06 2020-04-06 Office Branden [facility] Encounter/ Legacy 00:00:00 00:00:00 Visit Aziza [id number] Co mmuni 216906 ty Health 2020-04-05 2020-04-05 Outpatient Aileen, [facility] [id number] [facility] 09:15:00 09:15:00 Allan 41 2020-04-05 2020-04-05 Office Oz [facility] Encounte r/ Legacy 00:00:00 00:00:00 Visit Chichi [id number] Co mmuni 406512 ty Health 2020-04-04 2020-04-04 Office Oz [facility] Encounte r/ Legacy 00:00:00 00:00:00 Visit Chichi [id number] Co mmuni 757523 ty Health 2020-04-03 2020-04-03 Office King [facility] Encounter/ Legacy 00:00:00 00:00:00 Visit Angela [id number] Communi 084008 ty Health 2020-03-31 2020-03-31 Outpatient Harms, [facility] [id number] [facility] 14:12:00 14:12:00 Allan 90 2020-03-31 2020-03-31 Office King [facility] Encounter/ Legacy 00:00:00 00:00:00 Visit Angela [id number] Communi 586022 ty Health 2020-03-31 2020-03-31 In-person Jayden Collinsadette [facility] Encounter/ Legacy 00:00:00 00:00:00 encounter Chichi Clinton OB 1 [id number] Commun Yi Joya 514616 ty Health 2020-03-31 2020-03-31 Office Oz [facility] Encounte r/ Legacy 00:00:00 00:00:00 Visit Chichi [id number] Co mmuni [id number] ty Health 2020-03-24 2020-03-24 Office King [facility] Encounter/ Legacy 00:00:00 00:00:00 Visit Angela [id number] Communi 830276 ty Health 2020-03-24 2020-03-24 Office King Angela [facility] E ncounter/ Legacy 00:00:00 00:00:00 Visit Teodora Siddiqui [id number] [id number] Communi 318504 ty Health 2020-03-24 2020-03-24 Office King [facility] Encounter/ Legacy 00:00:00 00:00:00 Visit Angela [id number] Communi 940627 ty Health 2020-03-24 2020-03-24 In-person Jayden Collinsadette [facility] st [id number] Legacy 00:00:00 00:00:00 encounter Leti Amanda OB 1010 8 CommunTeodora Avery ty Health 2020-03-21 2020-03-21 Office [facility] En[facility]/ Legacy 00:00:00 00:00:00 Visit Angela [id number] Communi 982862 ty Health 2020-03-21 2020-03-21 Office DiClementREGIS castaneda REGIS Encoun ter/ Legacy 00:00:00 00:00:00 Visit Rishi [id number] Com lucas 864530 ty Health 2020-03-20 2020-03-20 Office Fatoumata Sanchez [facility] Encounter/ Legacy 00:00:00 00:00:00 Visit Soraida Caban [id number] [facility] 990198 [facility] 2020-03-18 2020-03-18 Office Kayla [facility] Encoun ter/ Legacy 00:00:00 00:00:00 Visit Rishi [id number] Com lucas 328246 ty Health 2020-03-18 2020-03-18 Office DiClementholger [facility] Encoun ter/ Legacy 00:00:00 00:00:00 Visit Rishi [id number] Com lucas 231239 ty Health 2020-03-18 2020-03-18 Office DiCleRishi shah [facility] Encounter/ Legacy 00:00:00 00:00:00 Visit Anna Gonzalez [id number] Marcus Caban Soraida 600657 ty Health 2020-03-18 2020-03-18 Office DiClementRishi castaneda [facility] Encounter/ Legacy 00:00:00 00:00:00 Visit Dia Carter [id number] [facility] 370740 [facility] Health 2020-03-18 2020-03-18 Office DiClementholger [facility] Encoun ter/ Legacy 00:00:00 00:00:00 Visit Rishi [id number] Com lucas 777622 ty Health 2020-03-18 2020-03-18 In-person DiCleRishi shah [facility] [phone] Legacy 00:00:00 00:00:[place] [address] [facility]ath [facility] 2020-03-06 2020-03-06 Office Awilda Normanola [facility] Encounter/ Legacy 00:00:00 00:00:00 Visit DemarioSonido ball [id number] Communi 663330 ty Health 2020-03-06 2020-03-06 Office Pappadas, [facility] Encounte r/ Legacy 00:00:00 00:00:00 Visit Sonido [id number] Com lucas 227299 ty Health 2020-03-06 2020-03-06 Office Pappadas, [facility] Encounte r/ Legacy 00:00:00 00:00:00 Visit Sonido [id number] Com lucas [id number] Health 2020-03-03 2020-03-03 Office Awilda Norman Hollie [facility] Encounter/ Legacy 00:00:00 00:00:00 Visit Sonido Caban [id number] 777190 Health 2020-03-03 2020-03-03 Office Pappadas, [facility] Encounte r/ Legacy 00:00:00 00:00:00 Visit Sonido [id number] Com lucas [id number] ty Health 2020-03-01 2020-03-01 Office Pappadas, [facility] Encounte r/ Legacy 00:00:00 00:00:00 Visit Sonido [id number] Com lucas 212752 ty Health 2020-03-01 2020-03-01 Office Pappadas, [facility] Encounte r/ Legacy 00:00:00 00:00:00 Visit Sonido [id number] Com lucas 163864 ty Health 2020-03-01 2020-03-01 Office Pappadas, [facility] Encounte r/ Legacy 00:00:00 00:00:00 Visit Sonido [id number] Com lucas 996382 ty Health 2020-03-01 2020-03-01 Office Pappadas, [facility] Encounte r/ Legacy 00:00:00 00:00:00 Visit Sonido [id number] Com lucas 961580 ty Health 2020-03-01 2020-03-01 Office Pappadas, [facility] Encounte r/ Legacy 00:00:00 00:00:00 Visit Sonido [id number] Com lucas 906386 ty Health 2020-03-01 2020-03-01 Office Pappadas, [facility] Encounte r/ Legacy 00:00:00 00:00:00 Visit Sonido [id number] Com lucas 523157 ty Health 2020-03-01 2020-03-01 Office Pappadlily, Sonido [facility] Enc ounter/ Legacy 00:00:00 00:00:00 Visit Teodora Siddiqui [id number] [facility] GutierresAwilda garciaola 0 75397 ty Health 2020-03-01 2020-03-01 Office Pappadas, [facility] Encounte r/ Legacy 00:00:00 00:00:00 Visit Sonido [id number] Com lucas [id number] ty Health 2020-03-01 2020-03-01 Office Pappadas, [facility] Encounte r/ Legacy 00:00:00 00:00:00 Visit Sonido [id number] Com lucas [id number] Health 2020-03-01 2020-03-01 In-person Pappadlily Sonido [facility] [id number] Legacy 00:00:00 00:00:00 encounter Teodora Siddiqui OB 0 1216 [facility] Aw[facility] Health 2020-02-08 2020-02-08 Office Yi Gonzalez [facility] Enc ounter/ Legacy 00:00:00 00:00:00 Visit Rishi Garza [id number] [facility] 589656 Health 2020-02-05 2020-02-05 Office DiClemente, [facility] Encoun ter/ Legacy 00:00:00 00:00:00 Visit Rishi [id number] Com lucas [id number] ty Health 2020-02-05 2020-02-05 Office DiClementholger, [facility] Encoun ter/ Legacy 00:00:00 00:00:00 Visit Rishi [id number] Com lucas 495709 ty Health 2020-02-05 2020-02-05 Office DiClementholger, Rishi [facility] Encounter/ Legacy 00:00:00 00:00:00 Visit Jessica Duff [id number] Yi Trujillo [id number] [facility] Health 2020-02-05 2020-02-05 Office Rishi Garza [facility] Encounter/ Legacy 00:00:00 00:00:00 Visit Yi Gonzalez [id number] Communi 500962 ty Health 2020-02-05 2020-02-05 In-person AleciaRishi castaneda [facility] [phone] Legacy 00:00:00 00:00:00 encounter Jessica Duff OB 0112 1 Communi Yi Gonzalez t y Health 2020-01-25 2020-01-25 Office King [facility] Encounter/ Legacy 00:00:00 00:00:00 Visit Angela [id number] Communi 700750 ty Health 2020-01-25 2020-01-25 Office King [facility] Encounter/ Legacy 00:00:00 00:00:00 Visit Angela [id number] Communi 779708 ty Health 2020-01-24 2020-01-24 Office Candelaria Ram [facility] Encounter/ Legacy 00:00:00 00:00:00 Visit Rona Ricardo [id number] Communi 815147 ty Health 2020-01-24 2020-01-24 Office Yo [facility] Encoun ter/ Legacy 00:00:00 00:00:00 Visit Candelaria Pradhan [id number] Communi 194435 ty Health 2020-01-24 2020-01-24 In-person Candelaria Ram [facility] [phone] Legacy 00:00:00 00:00:00 encounter Rona Ricardo OB 01 109 Communi ty Health 2019-12-27 2019-12-27 Office Anna Gonzalez [facility] Encou nter/ Legacy 00:00:00 00:00:00 Visit Sara Gotti [id number] Communi 957828 ty Health 2019-12-23 2019-12-23 Office King [facility] Encounter/ Legacy 00:00:00 00:00:00 Visit Angela [id number] Communi 097217 ty Health 2019-12-15 2019-12-15 Office King [facility] Encounter/ Legacy 00:00:00 00:00:00 Visit Angela [id number] Communi 174681 ty Health 2019-12-15 2019-12-15 Office King [facility] Encounter/ Legacy 00:00:00 00:00:00 Visit Angela [id number] Communi 712867 ty Health 2019-12-15 2019-12-15 Office King [facility] Encounter/ Legacy 00:00:00 00:00:00 Visit Angela [id number] Communi 600075 ty Health 2019-12-15 2019-12-15 Office King [facility] Encounter/ Legacy 00:00:00 00:00:00 Visit Angela [id number] Communi 544739 ty Health 2019-12-15 2019-12-15 Office Angela Collins [facility] E ncounter/ Legacy 00:00:00 00:00:00 Visit Anju Cantu [id number] Communi 456831 ty Health 2019-12-15 2019-12-15 Office King [facility] Encounter/ Legacy 00:00:00 00:00:00 Visit Angela [id number] Communi 010237 ty Health 2019-12-15 2019-12-15 Office King [facility] Encounter/ Legacy 00:00:00 00:00:00 Visit Angela [id number] Communi 943770 ty Health 2019-12-15 2019-12-15 Office King [facility] Encounter/ Legacy 00:00:00 00:00:00 Visit Angela [id number] Communi 776876 ty Health 2019-12-15 2019-12-15 In-person Angela Collins [facility] [phone] Legacy 00:00:00 00:00:00 encounter Anju Cantu OB 0093 0 Communi ty Health 2019-11-29 2019-11-29 Office Candelaria Ram [facility] Encounter/ Legacy 00:00:00 00:00:00 Visit Rona Ricardo [id number] Communi 608585 ty Health 2019-11-29 2019-11-29 Office Candelaria Ram [facility] Encounter/ Legacy 00:00:00 00:00:00 Visit Angela Collins [id number] Communi 601567 ty Health 2019-11-29 2019-11-29 In-person Candelaria Ram [facility] [id number] Legacy 00:00:00 00:00:00 encounter Rona Ricardo OB 00 914 Communi ty Health 2019-10-20 2019-10-20 Office GAYATHRI Kathleen Encounter/ Legacy 00:00:00 00:00:00 Visit Nicole [id number] Com lucas 260426 ty Health 2019-10-20 2019-10-20 Office GAYATHRI Kathleen Encounter/ Legacy 00:00:00 00:00:00 Visit Nicole [id number] Com lucas 795976 ty Health 2019-10-13 2019-10-13 Office Nicole Kathleen [facility] En counter/ Legacy 00:00:00 00:00:00 Visit Amelie Pratt [id number] Communi 686951 ty Health 2019-10-06 2019-10-06 [facility] Legacy 00:00:00 00:00:00 Visit Angela [id number] Communi 777933 ty Health 2019-10-06 2019-10-06 Office REGIS Collins REGIS Encounter/ Legacy 00:00:00 00:00:00 Visit Angela [id number] Communi 188871 ty Health 2019-10-06 2019-10-06 Office REGIS Collins REGIS Encounter/ Legacy 00:00:00 00:00:00 Visit Angela [id number] Communi [id number] ty Health 2019-10-06 2019-10-06 Office Angela Collins [facility] E ncounter/ Legacy 00:00:00 00:00:00 Visit Jaya Cantu [id number] Communi [id number] ty Health 2019-10-06 2019-10-06 Office GAYATHRI Kathleen Encounter/ Legacy 00:00:00 00:00:00 Visit Nicole [id number] Com lucas [id number] ty Health 2019-10-06 2019-10-06 Office GAYATHRI Collins Encounter/ Legacy 00:00:00 00:00:00 Visit Angela [id number] Communi [id number] ty Health 2019-10-06 2019-10-06 In-person [place] Angela [facility] [id number] Legacy 00:00:00 00:00:00 encounter Jaya Cantu OB 007 22 Commun ty Health 2019-09-28 2019-09-28 Office King [facility] Encounter/ Legacy 00:00:00 00:00:00 Visit Angela [id number] Communi [id number] ty Health 2019-09-28 2019-09-28 Office Angela [facility] E ncounter/ Legacy 00:00:00 00:00:00 Visit [facility] [id number] [id number] 2019-09-15 2019-09-15 Office Hever [facility] Encounter/ Legacy 00:00:00 00:00:00 Visit Nicole [id number] Com lucas [id number] ty Health 2019-09-15 2019-09-15 Office Pepe [facility] Encount er/ Legacy 00:00:00 00:00:00 Visit Jaya [id number] Com lucas [id number] ty Health 2019-09-10 2019-09-10 Office Arsh [facility] Encounte r/ Legacy 00:00:00 00:00:00 Visit Sonido [id number] Com lucas [id number] ty Health 2019-09-10 2019-09-10 Office Sonido Caban [facility] Enc ounter/ Legacy 00:00:00 00:00:00 Visit Anju Cantu [id number] Communi [id number] ty Health 2019-09-10 2019-09-10 Office Arsh [facility] Encounte r/ Legacy 00:00:00 00:00:00 Visit Sonido [id number] Com lucas [id number] ty Health 2019-09-10 2019-09-10 In-person Sonido Caban [facility] [id number] Legacy 00:00:00 00:00:00 encounter Anju Cantu OB 0062 6 [facility] ty Health 2019-09-09 2019-09-09 Office King [facility] Encounter/ Legacy 00:00:00 00:00:00 Visit Angela [id number] Communi [id number] ty Health 2019-09-06 2019-09-06 Office Hever Nicole [facility] En counter/ Legacy 00:00:00 00:00:00 Visit Shruthicris Amelie [id number] Communi [id number] ty Health 2019-09-04 2019-09-04 Office GAYATHRI Cantu Encount er/ Legacy 00:00:00 00:00:00 Visit Jetarnulfo [id number] [facility] lucas [id number] ty Health 2019-09-04 2019-09-04 Office [place] [facility]/ Legacy 00:00:00 00:00:00 Visit Angela [id number] Communi [id number] ty Health 2019-08-31 2019-08-31 Office [place] [facility] En[facility]/ Legacy 00:00:00 00:00:00 Visit Angela [id number] Communi [id number] ty Health 2019-08-31 2019-08-31 Office [place] [facility] Encounter/ Legacy 00:00:00 00:00:00 Visit Angela [id number] Communi [id number] ty Health 2019-08-31 2019-08-31 Office [place] [facility] En[facility]/ Legacy 00:00:00 00:00:00 Visit Angela [id number] Communi [id number] ty Health 2019-08-31 2019-08-31 Office [place] [facility] Encounter/ Legacy 00:00:00 00:00:00 Visit Angela [id number] Communi [id number] ty Health 2019-08-31 2019-08-31 Office [place] [facility] Encounter/ Legacy 00:00:00 00:00:00 Visit Angela [id number] Communi [id number] ty Health 2019-08-31 2019-08-31 Office [place] [facility] Encounter/ Legacy 00:00:00 00:00:00 Visit Angela [id number] Communi [id number] ty Health 2019-08-31 2019-08-31 Office Angela Collins LC E ncounter/ Legacy 00:00:00 00:00:00 Visit Jaya Cantu [id number] Esther Arrieta [id number] [facility] 2019-08-31 2019-08-31 Office King [facility] Encounter/ Legacy 00:00:00 00:00:00 Visit Angela [id number] [facility] [id number] [facility] 2019-08-31 2019-08-31 In-person Jayden Collinsadette [facility] [id number] Legacy 00:00:00 00:00:00 encounter Jaya Cantu OB 006 16 Esther Arrieta [facility] Results Test Description Test Time Test Comments Results Result Comments Source beta HCG, urine, semiquantitative 2022-07-11 09:54:00 Test Item Value Reference Range Interpretation Comme nts beta HCG, urine, semiquantitative (test code = 2106-3) negative [facility], [id number] 10:53:00 Test Item Value Reference Range Interpretation Comments Treponema pallidum Ab, serum (test REACTIVE NON-REACTIVE A code = 12522-8) [facility] [id number] 10:53:00 Test Item Value Reference Range Interpretation Comments rapid plasma reagin antibody titer 1:8 H (test code = 2697995) [facility] [id number] 10:53:00 Test Item Value Reference Range Interpretation Comments rapid plasma reagin antibody, serum REACTIVE NON-REACTIVE A (test code = 5291-0) [facility] Count Auto [id number] 09:35:00 Test Item Value Reference Range Interpretation Comments White Blood Count (test code = 11.3 x10 3/uL 4.4-10.5 H WBCT) Red Blood Count (test code = 3.16 x10 6/uL 3.75-5.20 L RBC) Hemoglobin (test code = HGBT) 9.1 g/dL 12.2-14.8 L Hematocrit (test code = HCTT) 27.9 % 36.5-44.4 L Mean Corpuscular Volume (test 88.30 fL 80.00-100.00 N code = MCV) Mean Corpuscular Hemoglobin 28.8 pg 27.0-32.5 N (test code = MCH) Mean Corpuscular HGB Conc 32.60 g/dL 32.00-37.50 N (test code = MCHC) RDW Coefficient of Variation 14.1 % 11.5-14.5 N (test code = RDWCV) Platelet Count (test code = 163.0 x10 3/uL 140.0-440.0 N PLTT) Mean Platelet Volume (test 11.9 fL code = MPV) Immature Granulocytes % (Auto) 0.5 % 0.0-5.0 N (test code = IMMGRAN%) Neutrophils % (Auto) (test 75.9 % 36.0-70.0 H code = NE%) Lymphocytes % (Auto) (test 16.2 % 12.0-44.0 N code = LY%) Monocytes % (Auto) (test code 6.8 % 0.0-11.0 N = MO%) Eosinophils % (Auto) (test 0.4 % 0.0-7.0 N code = EO%) Basophils % (Auto) (test code 0.2 % 0.0-2.0 N = BA%) Immature Granulocytes # (Auto) 0.06 x10 3/uL (test code = IMMGRAN#) Neutrophils # (Auto) (test 8.6 x10 3/uL 1.6-7.4 H code = NE#) Lymphocytes # (Auto) (test 1.82 x10 3/uL 0.50-4.60 N code = LY#) Monocytes # (Auto) (test code 0.77 x10 3/uL 0.00-1.20 N = MO#) Eosinophils # (Auto) (test 0.04 x10 3/uL 0.00-0.74 N code = EO#) Basophils # (Auto) (test code 0.02 x10 3/uL 0.00-0.21 N = BA#) nRBC Abs (test code = NRBCA) 0 nRBC Pct (test code = NRBCP) 0 % Comment: To be collected 12hrs postopSyphilis [id number] 09:35:00 Test Item Value Reference Range Interpretation Comments Syphilis Antibody Reactive NonReactive A Nonreactiv e: Samples with a (test code = value < 0.90 In dex SYPAB) areconsidered n onreactive for syphilis T. pallidum antibodies.Reac tive: Samples with a value = 1.10 Index are consideredreact shayne for syphilis T. pal lidum antibodies.Equi vocal: Samples with a value = 0.90 Index and < 1.1 0Index are considered equi vocal. Rapid Plasma [id number] 09:35:00 Test Item Value Reference Range Interpretation Comments Rapid Plasma Reagin Reactive NonReactive A Critical value called (test code = RPR) to travis molina by denise on: 12/08 at 1232by TEE03. Rapid Plasma Reagin [id number] 09:35:00 Test Item Value Reference Range Interpretation Comments Rapid Plasma Reagin Titer (test Reactive 1:4 Non-React A code = RPRT) Treponema pallidum [id number] 09:35:00 Test Item Value Reference Range Interpretation Comments Treponema pallidum Reactive Non Reactive A Performed at: BN - Antibodies (test code = [facility] [place] [id number] TREPONEMAP.L) [place], [place] [id number] Di jeremiah: Raman Husain MD, Phone: [phone] ACG, Cord Arterial Blood [id number] 22:22:00 Test Item Value Reference Range Interpretation Comments A-aDO2 Cord 76.5 mmHg N Arterial (test code = CORDAAaDpO2) Hct, BG Cord 42 % 40-70 N Arterial (test code = CORDAHct) Cord Arterial 7.31 7.32-7.43 N [facility] Blood PH (test Center Blood Gas code = CORDApH) LaboratoryMo jim Bonilla edical DirectorSelect [facility]ty [facility] [id number] Cord Art Blood 7.31 7.32-7.43 N PH Corrected (test code = CORDApH(T)) Cord Arterial 50 mmHg 27-40 N Blood CO2 (test code = CORDApCO2) Cord Arterial 50.1 mmHg 27-40 N CO2 Corrected (test code = CORDApCO2(T)) Cord Arterial 17 mmHg 60-70 N Critical value called Blood PO2 (test to travis dawson by [] code = CORDApO2) on: 2 at 2221by [facility]. Cord Art Blood 16.5 mmHg 60-70 N PO2 Corrected (test code = CORDApO2(T)) Cord Arterial 25.3 mmol/l N Blood HCO3 (test code = CORDAHCO3-) Cord Arterial -1.6 mmol/l N Bld Base Excess (test code = CORDAABE) Cord Arterial 21.0 % N Blood FIO2 (test code = CORDAFIO2) OID/SITE (test Umbilical code = SITE) Source (test Cord Blood code = Sample Arterial type) Specimen Drawn DR Beryl MANUEL By (test code = Drawn by) Sample Age (test 8 code = Sample Age) Coronavirus PCR, COVID19 [id number] 19:45:00 Test Item Value Reference Range Interpretation Comments Coronavirus PCR, For use under Emergency COVID19 Rapid (test Use Authorization (EUA) code = SARSCOV2) only. Coronavirus PCR, Reference Range: COVID19 Rapid (test Negative code = CIHGNKG98.1) SARS-CoV-2 PCR Result: Negative by RT-PCR (test code = SARS-CoV-2 PCR Result:) COVID-19 Status: AsymptomaticComprehensive Metabolic [id number] 15:36:00 Test Item Value Reference Range Interpretation Comments SODIUM (test code = NA) 139.0 mmol/L 136.0-145.0 N Potassium,K (test code = K) 4.1 mmol/L 3.0-5.1 N Chloride (test code = CL) 107 mmol/L 98-107 N Carbon Dioxide (test code = 22 mmol/L 20-31 N CO2) Anion Gap (test code = GAP) 10 mmol/L 5-15 N Blood Urea Nitrogen (test code 11 mg/dL 9-23 N = BUN) Creatinine (test code = CREATT) 0.51 mg/dL 0.55-1.02 L Creatinine Clr Calc Pharmacy 155.09 mL/min (test code = CRCLPHA) Estimated GFR ( Lashawn > 60 mL/min/1.73m2 (test code = EGFRAA) Estimated GFR (Non Afr Lashawn > 60 mL/min/1.73m2 (test code = EGFRNAA) BUN/Creatinine Ratio (test code 22 ratio 10-20 H = BCRATIO) Glucose (test code = GLU) 74 mg/dL 74-106 N Osmolality,Calculated (test 285.9 code = OSMOC) Calcium (test code = CA) 8.3 mg/dL 8.3-10.6 N Bilirubin,Total (test code = 0.2 mg/dL 0.2-1.1 N BILIT) Aspartate Amino Transferase 16 U/L 0-34 N (test code = AST) Alanine Aminotransferase (test < 7 U/L 10-49 L code = ALT) Total Protein (test code = TP) 6.4 g/dL 5.7-8.2 N Albumin Level (test code = ALB) 3.2 g/dL 3.2-4.8 N Globulin (test code = GLOB) 3.2 mg/dL 2.3-3.5 N Albumin/Globulin Ratio (test 1.0 ratio 0.8-2.0 N code = AGRATIO) Alkaline Phosphatase (test code 112 U/L 46-116 N = ALP) Lactate [id number] 15:36:00 Test Item Value Reference Range Interpretation Comments Lactate Dehydrogenase (test code = 211 U/L 120-246 N LDH) Complete Blood Count Auto [id number] 15:36:00 Test Item Value Reference Range Interpretation Comments White Blood Count (test code = 9.4 x10 3/uL 4.4-10.5 N WBCT) Red Blood Count (test code = 3.44 x10 6/uL 3.75-5.20 L RBC) Hemoglobin (test code = HGBT) 9.9 g/dL 12.2-14.8 L Hematocrit (test code = HCTT) 30.9 % 36.5-44.4 L Mean Corpuscular Volume (test 89.80 fL 80.00-100.00 N code = MCV) Mean Corpuscular Hemoglobin 28.8 pg 27.0-32.5 N (test code = MCH) Mean Corpuscular HGB Conc 32.00 g/dL 32.00-37.50 N (test code = MCHC) RDW Coefficient of Variation 14.2 % 11.5-14.5 N (test code = RDWCV) Platelet Count (test code = 187.0 x10 3/uL 140.0-440.0 N PLTT) Mean Platelet Volume (test 12.2 fL code = MPV) Immature Granulocytes % (Auto) 0.6 % 0.0-5.0 N (test code = IMMGRAN%) Neutrophils % (Auto) (test 69.1 % 36.0-70.0 N code = NE%) Lymphocytes % (Auto) (test 20.6 % 12.0-44.0 N code = LY%) Monocytes % (Auto) (test code 8.8 % 0.0-11.0 N = MO%) Eosinophils % (Auto) (test 0.7 % 0.0-7.0 N code = EO%) Basophils % (Auto) (test code 0.2 % 0.0-2.0 N = BA%) Immature Granulocytes # (Auto) 0.06 x10 3/uL (test code = IMMGRAN#) Neutrophils # (Auto) (test 6.5 x10 3/uL 1.6-7.4 N code = NE#) Lymphocytes # (Auto) (test 1.93 x10 3/uL 0.50-4.60 N code = LY#) Monocytes # (Auto) (test code 0.83 x10 3/uL 0.00-1.20 N = MO#) Eosinophils # (Auto) (test 0.07 x10 3/uL 0.00-0.74 N code = EO#) Basophils # (Auto) (test code 0.02 x10 3/uL 0.00-0.21 N = BA#) nRBC Abs (test code = NRBCA) 0 nRBC Pct (test code = NRBCP) 0 % Protein/Creatinine Ratio,[id number] 15:20:00 Test Item Value Reference Range Interpretation Comments Total Protein,Urine Random (test 15.1 mg/dL 1.0-14.0 H code = TPU) Creatinine,Urine Random (test 141.7 mg/dL 10.0-300.0 N code = CREU) Protein/Creatinine Ratio,Urine 0.10 Ratio (test code = PROUCRE) nitrite, urine, [id number] 09:37:22 Test Item Value Reference Range Interpretation Comments nitrite, urine, semiquantitative (test Neg code = 5802-4) [facility], by test [id number] 09:37:22 Test Item Value Reference Range Interpretation Comments ketones, urine, by test strip (test Neg code = 5797-6) [facility], urine, semiquantitative (dipstick)2021-12-07 09:37:22 Test Item Value Reference Range Interpretation Comments protein, urine, semiquantitative Neg (dipstick) (test code = 1753-3) [facility]2019NCoV (COVID-19) SARS coronavirus 2 RNA (Presence) in Respiratory specimen by SUSANA with probe detection (Other Lab)2021-08-16 13:13:00 Test Item Value Reference Range Interpretation Comments 2019NCoV (COVID-19) SARS Not Detected Not Detected coronavirus 2 RNA (Presence) in Respiratory specimen by SUSANA with probe detection (Other Lab) (test code = 22744-5) [facility]uric acid, [id number] 10:21:00 Test Item Value Reference Range Interpretation Comments uric acid, serum (test code = 3.0 mg/dL 2.6-6.2 3084-1) [facility]rapid plasma reagin antibody, [id number] 10:21:00 Test Item Value Reference Range Interpretation Comments rapid plasma reagin antibody, serum Reactive Non Reactive A (test code = 5291-0) [facility] SouthTreponema pallidum particle agglutination assay (TPPA test)2021-07-16 10:21:00 Test Item Value Reference Range Interpretation Comments Treponema pallidum particle Reactive Non Reactive A agglutination assay (TPPA test) (test code = 07711-4) [facility], urine, semiquantitative (dipstick)2021-07-16 10:21:00 Test Item Value Reference Range Interpretation Comments protein, urine, 14.0 (unknown semiquantitative (dipstick) unit) (test code = 1753-3) [facility]creatinine, random, [id number] 10:21:00 Test Item Value Reference Range Interpretation Comments creatinine, random, urine (test 235.3 mg/dL code = 2161-8) [facility]alanine aminotransferase (SGPT), [id number] 10:21:00 Test Item Value Reference Range Interpretation Comments alanine aminotransferase (SGPT), serum 8 1/L 0-32 (test code = 1742-6) [facility] Southaspartate aminotransferase (SGOT), [id number] 10:21:00 Test Item Value Reference Range Interpretation Comments aspartate aminotransferase (SGOT), 12 1/L 0-40 serum (test code = 1920-8) [facility], [id number] 10:21:00 Test Item Value Reference Range Interpretation Comments alkaline phosphatase, serum (test code 52 1/L 44-121 = 1783-0) [facility] Healthbilirubin, serum, [id number] 10:21:00 Test Item Value Reference Range Interpretation Comments bilirubin, serum, total (test code <0.2 mg/dL 0.0-1.2 = 1975-2) [facility] Healthalbumin/globulin ratio, [id number] 10:21:00 Test Item Value Reference Range Interpretation Comments albumin/globulin ratio, 1.2 (unknown unit) 1.2-2.2 serum (test code = 1759-0) [facility] Healthglobulin, [id number] 10:21:00 Test Item Value Reference Range Interpretation Comments globulin, serum (test code 3.2 (unknown unit) 1.5-4.5 = 2336-6) [facility] Healthalbumin, [id number] 10:21:00 Test Item Value Reference Range Interpretation Comments albumin, serum (test code = 1751-7) 3.8 g/dL 3.9-5.0 L [facility]protein, total, [id number] 10:21:00 Test Item Value Reference Range Interpretation Comments protein, total, serum (test code = 7.0 g/dL 6.0-8.5 2885-2) [facility]calcium, [id number] 10:21:00 Test Item Value Reference Range Interpretation Comments calcium, serum (test code = 1999-8) 9.1 mg/dL 8.7-10.2 [facility]carbon dioxide, venous [id number] 10:21:00 Test Item Value Reference Range Interpretation Comments carbon dioxide, venous blood (test 20 mmol/L - code = 2026-1) [facility]chloride, [id number] 10:21:00 Test Item Value Reference Range Interpretation Comments chloride, serum (test code = 103 mmol/L 96-106 5-0) [facility]potassium, [id number] 10:21:00 Test Item Value Reference Range Interpretation Comments potassium, serum (test code = 4.2 mmol/L 3.5-5.2 2823-3) [facility]sodium, [id number] 10:21:00 Test Item Value Reference Range Interpretation Comments sodium, serum (test code = 2951-2) 137 mmol/L 134-144 [facility] Southurea nitrogen/creatinine ratio, [id number] 10:21:00 Test Item Value Reference Range Interpretation Comments urea nitrogen/creatinine 17 (unknown unit) 9-23 ratio, serum (test code = 3097-3) [facility] SouthEstimated Glomerular Filtration Rate (calc)2021-07-16 10:21:00 Test Item Value Reference Range Interpretation Comments Estimated Glomerular 125 mL/min/{1.73 m2} >59 Filtration Rate (calc) (test code = 76146-7) [facility]creatinine, [id number] 10:21:00 Test Item Value Reference Range Interpretation Comments creatinine, serum (test code = 0.60 mg/dL 0.57-1.00 2160-0) [facility]ure[facility] nitrogen, [id number] 10:21:00 Test Item Value Reference Range Interpretation Comments urea nitrogen, blood (test code = 10 mg/dL 6-20 3094-0) [facility] Southblood glucose, [id number] 10:21:00 Test Item Value Reference Range Interpretation Comments blood glucose, random (test code = 86 mg/dL 65-99 2339-0) [facility] Southimmature granulocytes, percentage of total cells, blood 2021-07-16 10:21:00 Test Item Value Reference Range Interpretation Comments immature granulocytes, percentage of 0 % total cells, blood (test code = 38012-3) [facility] Southbasophil count, [id number] 10:21:00 Test Item Value Reference Range Interpretation Comments basophil count, absolute (test 0.0 x10E3/uL 0.0-0.2 code = 28601-7) [facility] SouthEosinophil Absolute [id number] 10:21:00 Test Item Value Reference Range Interpretation Comments Eosinophil Absolute Count (test 0.1 X10E3/UL 0.0-0.4 code = 73714-8) [facility] Healthmonocyte count, blood, qpdbfgppl6850-23-89 10:21:00 Test Item Value Reference Range Interpretation Comments monocyte count, blood, automated 0.5 X10E3/UL 0.1-0.9 (test code = 742-7) [facility] Southlymphocyte count, blood, [id number] 10:21:00 Test Item Value Reference Range Interpretation Comments lymphocyte count, blood, 2.5 X10E3/UL 0.7-3.1 automated (test code = 731-0) [facility] SouthAbsolute Cqsejineuma7748-14-22 10:21:00 Test Item Value Reference Range Interpretation Comments Absolute Neutrophils (test code 5.4 X10E3/UL 1.4-7.0 = 12464-4) [facility] Southbasophils as percent of blood [id number] 10:21:00 Test Item Value Reference Range Interpretation Comments basophils as percent of blood 0 % leukocytes (test code = 707-0) [facility] Southeosinophils as percent of blood [id number] 10:21:00 Test Item Value Reference Range Interpretation Comments eosinophils as percent of blood 2 % leukocytes (test code = 713-8) [facility] Healthmonocytes as percent of blood [id number] 10:21:00 Test Item Value Reference Range Interpretation Comments monocytes as percent of blood 6 % leukocytes (test code = 5905-5) [facility] Southlymphocytes as percent of blood [id number] 10:21:00 Test Item Value Reference Range Interpretation Comments lymphocytes as percent of blood 30 % leukocytes (test code = 736-9) [facility] Southneutrophils as percent of blood [id number] 10:21:00 Test Item Value Reference Range Interpretation Comments neutrophils as percent of blood 62 % leukocytes (test code = 770-8) [facility] Southplatelet [id number] 10:21:00 Test Item Value Reference Range Interpretation Comments platelet count (test code = 319 X10E3/UL 150-450 777-3) [facility] Southred blood cell distribution [id number] 10:21:00 Test Item Value Reference Range Interpretation Comments red blood cell distribution width 14.6 % 11.7-15.4 (test code = 788-0) [facility] hemoglobin concentration, [id number] 10:21:00 Test Item Value Reference Range Interpretation Comments mean corpuscular hemoglobin 32.4 G/DL 31.5-35.7 concentration, RBC (test code = 786-4) [facility] corpus[facility] hemoglobin, [id number] 10:21:00 Test Item Value Reference Range Interpretation Comments mean corpuscular hemoglobin, RBC 28.2 pg 26.6-33.0 (test code = 785-6) [facility] corpuscular volume, [id number] 10:21:00 Test Item Value Reference Range Interpretation Comments mean corpuscular volume, RBC (test code 87 fL 79-97 = 787-2) [facility]hematocrit, [id number] 10:21:00 Test Item Value Reference Range Interpretation Comments hematocrit, blood (test code = 4544-3) 35.5 % 34.0-46.6 [facility] Southhemoglobin, [id number] 10:21:00 Test Item Value Reference Range Interpretation Comments hemoglobin, blood (test code = 11.5 g/dL 11.1-15.9 718-7) [facility] Southerythrocyte (RBC) [id number] 10:21:00 Test Item Value Reference Range Interpretation Comments erythrocyte (RBC) count (test 4.08 X10E6/UL 3.77-5.28 code = 789-8) [facility] Southleukocyte count, [id number] 10:21:00 Test Item Value Reference Range Interpretation Comments leukocyte count, blood (test 8.5 X10E3/UL 3.4-10.8 code = 6690-2) [facility] Southhepatitis B surface [id number] 10:21:00 Test Item Value Reference Range Interpretation Comments hepatitis B surface antigen (test Negative Negative code = 66595-8) [facility] SouthHIV-CMIA (Chemiluminescent Microparticle Immuno Assay) 2021-07-16 10:21:00 Test Item Value Reference Range Interpretation Comments HIV-CMIA (Chemiluminescent Non Reactive Non Reactive Microparticle Immuno Assay) (test code = 81328-6) [facility] Southhepatitis C antibody, [id number] 10:21:00 Test Item Value Reference Range Interpretation Comments hepatitis C antibody, 0.2 (unknown unit) 0.0-0.9 serum (test code = 07446-2) [facility] SouthRh [id number] 10:21:00 Test Item Value Reference Range Interpretation Comments Rh antibody (test code = 256) Negative Negative [facility] Southrapid plasma reagin antibody [id number] 10:21:00 Test Item Value Reference Range Interpretation Comments rapid plasma reagin 1:8 See_Comment H [Automa michael message] The antibody titer (test system which generated code = 7554690) this result transmitted reference range : NonRea<1:1. The reference range was not u sed to interpret this result as normal/abnormal . [facility] [id number] 10:21:00 Test Item Value Reference Range Interpretation Comments Rh antigen (test code = 255) Positive [facility] SouthABO blood [id number] 10:21:00 Test Item Value Reference Range Interpretation Comments ABO blood group (test code = 116) O [facility] Southhepatitis C antibody, [id number] 10:21:00 Test Item Value Reference Range Interpretation Comments hepatitis C antibody, 0.2 (unknown unit) 0.0-0.9 serum (test code = 5199-5) [facility] Southchlamydia DNA [id number] 10:05:00 Test Item Value Reference Range Interpretation Comments chlamydia DNA probe (test code = Negative Negative 58806-7) [facility] [id number] 10:05:00 Test Item Value Reference Range Interpretation Comments urine culture (test code = 630-4) [facility] [id number] 10:05:00 Test Item Value Reference Range Interpretation Comments Human Papillomavirus test result HPVNotTested (test code = 07610-9) [facility] gon[facility]rho[facility] [id number] 10:05:00 Test Item Value Reference Range Interpretation Comments Neisseria gonorrhoeae DNA probe Negative Negative (test code = 21373-2) [facility] [id number] 10:05:00 Test Item Value Reference Range Interpretation Comments Neisseria gonorrhoeae DNA probe Negative Negative (test code = 56652-4) [facility] Papillomavirus test [id number] 10:05:00 Test Item Value Reference Range Interpretation Comments Human Papillomavirus test result HPVNotTested (test code = 45214-2) [facility], wfxsbzobpzfhhfal4900-70-51 09:08:02 Test Item Value Reference Range Interpretation Comments nitrite, urine, semiquantitative (test Neg code = 5802-4) [facility] Healthketones, urine, by test [id number] 09:08:02 Test Item Value Reference Range Interpretation Comments ketones, urine, by test strip (test Neg code = 5797-6) [facility], semiquantitative (dipstick)2021-07-16 09:08:02 Test Item Value Reference Range Interpretation Comments protein, urine, semiquantitative Neg (dipstick) (test code = 1753-3) [facility] HCG, urine, [id number]7 09:08:02 Test Item Value Reference Range Interpretation Comments beta HCG, urine, semiquantitative positive (test code = 2106-3) [facility] Fibrosis [facility], Whole [id number] 00:00:00 Test Item Value Reference Range Interpretation Comments Cystic Fibrosis DNA, Whole Blood Negative N (test code = 91955) [facility] urine, [id number] 14:38:36 Test Item Value Reference Range Interpretation Comments nitrite, urine, semiquantitative (test Neg code = 5802-4) [facility] Healthketones, urine, by test [id number] 14:38:36 Test Item Value Reference Range Interpretation Comments ketones, urine, by test strip (test Neg code = 5797-6) [facility], semiquantitative (dipstick)2020-04-14 14:38:36 Test Item Value Reference Range Interpretation Comments protein, urine, semiquantitative Neg (dipstick) (test code = 1753-3) [facility]HIV [facility], date of [id number] 14:38:36 Test Item Value Reference Range Interpretation Comments HIV test, date of last (test code 03/01/2020 = 03124) [facility] Blood Count Auto [id number] 09:55:00 Test Item Value Reference Range Interpretation Comments White Blood Count (test code = 10.8 x10 3/uL 4.4-10.5 H WBCT) Red Blood Count (test code = 3.41 x10 6/uL 3.75-5.20 L RBC) Hemoglobin (test code = HGBT) 9.6 g/dL 12.2-14.8 L Hematocrit (test code = HCTT) 30.1 % 36.5-44.4 L Mean Corpuscular Volume (test 88.30 fL 80.00-100.00 N code = MCV) Mean Corpuscular Hemoglobin 28.2 pg 27.0-32.5 N (test code = MCH) Mean Corpuscular HGB Conc 31.90 g/dL 32.00-37.50 L (test code = MCHC) RDW Coefficient of Variation 13.9 % 11.5-14.5 N (test code = RDWCV) Platelet Count (test code = 219.0 x10 3/uL 140.0-440.0 N PLTT) Mean Platelet Volume (test 10.9 fL code = MPV) Immature Granulocytes % (Auto) 0.4 % 0.0-5.0 N (test code = IMMGRAN%) Neutrophils % (Auto) (test 77.1 % 36.0-70.0 H code = NE%) Lymphocytes % (Auto) (test 16.1 % 12.0-44.0 N code = LY%) Monocytes % (Auto) (test code 5.9 % 0.0-11.0 N = MO%) Eosinophils % (Auto) (test 0.3 % 0.0-7.0 N code = EO%) Basophils % (Auto) (test code 0.2 % 0.0-2.0 N = BA%) Immature Granulocytes # (Auto) 0.04 x10 3/uL (test code = IMMGRAN#) Neutrophils # (Auto) (test 8.4 x10 3/uL 1.6-7.4 H code = NE#) Lymphocytes # (Auto) (test 1.74 x10 3/uL 0.50-4.60 N code = LY#) Monocytes # (Auto) (test code 0.64 x10 3/uL 0.00-1.20 N = MO#) Eosinophils # (Auto) (test 0.03 x10 3/uL 0.00-0.74 N code = EO#) Basophils # (Auto) (test code 0.02 x10 3/uL 0.00-0.21 N = BA#) nRBC Abs (test code = NRBCA) 0 nRBC Pct (test code = NRBCP) 0 % ACG, Cord Arterial Blood [id number] 22:00:00 Test Item Value Reference Range Interpretation Comments A-aDO2 Cord 80.1 mmHg Arterial (test code = CORDAAaDpO2) Hct, BG Cord 41 % 40-70 Arterial (test code = CORDAHct) Cord Arterial 7.35 7.32-7.43 Blood PH (test code = CORDApH) Cord Art Blood PH 7.35 7.32-7.43 Corrected (test code = CORDApH(T)) Cord Arterial 48 mmHg 27-40 H 83 S Value abo ve Blood CO2 (test reference ra nge code = CORDApCO2) Cord Arterial CO2 47.5 mmHg 27-40 Corrected (test code = CORDApCO2(T)) Cord Arterial 17 mmHg 65-76 L 84 S Value bel ow Blood PO2 (test reference code = CORDApO2) rangeCritic al value called to maritza stuart back by [] on: 03/31/20 at 215 6by INFCE. Cord Art Blood 16.5 mmHg 65-76 PO2 Corrected (test code = CORDApO2(T)) Cord Arterial 25.9 mmol/l Blood HCO3 (test code = CORDAHCO3-) Cord Arterial Bld -0.3 mmol/l Base Excess (test code = CORDAABE) Cord Arterial 21.0 % Blood FIO2 (test code = CORDAFIO2) OID/SITE (test Umbilical code = SITE) Source (test code Cord Blood = Sample type) Arterial Specimen Drawn By DR Beryl MANUEL (test code = Drawn by) Sample Age (test 10 code = Sample Age) Protein/Creatinine Ratio,[id number] 17:35:00 Test Item Value Reference Range Interpretation Comments Total Protein,Urine Random (test 16.3 mmol/L 1.0-14.0 H code = TPU) Creatinine,Urine Random (test 183.7 mg/dL 10.0-300.0 N code = CREU) Protein/Creatinine Ratio,Urine 0.1 Ratio (test code = PROUCRE) Hepatitis B Surface [id number] 16:50:00 Test Item Value Reference Range Interpretation Comments Hepatitis B Surface Antigen Non-Reactive NonReactive Normal (test code = HBSAG) Rapid Plasma Reagin [id number] 16:50:00 Test Item Value Reference Range Interpretation Comments Rapid Plasma Reagin Titer (test Reactive 1:16 Non-React A code = RPRT) Treponema Pallidum [id number] 16:50:00 Test Item Value Reference Range Interpretation Comments Treponema Pallidum Ab Reactive RBLV R N Papo (test code = TPAB) Alejandro andrews [birth year]-20 1440Lot: [id number] Exp: 3-8-4929Rlhwkow e Control: ReactiveNon-zonia ctive Control: Non-re active Complete Blood Count Auto [id number] 16:50:00 Test Item Value Reference Range Interpretation Comments White Blood Count (test code = 8.9 x10 3/uL 4.4-10.5 N WBCT) Red Blood Count (test code = 3.79 x10 6/uL 3.75-5.20 N RBC) Hemoglobin (test code = HGBT) 10.9 g/dL 12.2-14.8 L Hematocrit (test code = HCTT) 33.3 % 36.5-44.4 L Mean Corpuscular Volume (test 87.90 fL 80.00-100.00 N code = MCV) Mean Corpuscular Hemoglobin 28.8 pg 27.0-32.5 N (test code = MCH) Mean Corpuscular HGB Conc 32.70 g/dL 32.00-37.50 N (test code = MCHC) RDW Coefficient of Variation 14.1 % 11.5-14.5 N (test code = RDWCV) Platelet Count (test code = 243.0 x10 3/uL 140.0-440.0 N PLTT) Mean Platelet Volume (test 11.1 fL code = MPV) Immature Granulocytes % (Auto) 0.4 % 0.0-5.0 N (test code = IMMGRAN%) Neutrophils % (Auto) (test 70.2 % 36.0-70.0 H code = NE%) Lymphocytes % (Auto) (test 22.3 % 12.0-44.0 N code = LY%) Monocytes % (Auto) (test code 6.1 % 0.0-11.0 N = MO%) Eosinophils % (Auto) (test 0.7 % 0.0-7.0 N code = EO%) Basophils % (Auto) (test code 0.3 % 0.0-2.0 N = BA%) Immature Granulocytes # (Auto) 0.04 x10 3/uL (test code = IMMGRAN#) Neutrophils # (Auto) (test 6.3 x10 3/uL 1.6-7.4 N code = NE#) Lymphocytes # (Auto) (test 1.99 x10 3/uL 0.50-4.60 N code = LY#) Monocytes # (Auto) (test code 0.54 x10 3/uL 0.00-1.20 N = MO#) Eosinophils # (Auto) (test 0.06 x10 3/uL 0.00-0.74 N code = EO#) Basophils # (Auto) (test code 0.03 x10 3/uL 0.00-0.21 N = BA#) nRBC Abs (test code = NRBCA) 0 nRBC Pct (test code = NRBCP) 0 % Comprehensive Metabolic [id number] 16:50:00 Test Item Value Reference Range Interpretation Comments SODIUM (test code = NA) 135.0 mmol/L 136.0-145.0 L Potassium,K (test code = K) 4.0 mmol/L 3.0-5.1 N Chloride (test code = CL) 104 mmol/L 98-107 N Carbon Dioxide (test code = 23 mmol/L 20-31 N CO2) Anion Gap (test code = GAP) 8 mmol/L 5-15 N Blood Urea Nitrogen (test code 12 mg/dL 9-23 N = BUN) Creatinine (test code = CREATT) 0.59 mg/dL 0.55-1.02 N Creatinine Clr Calc Pharmacy 131.61 mL/min (test code = CRCLPHA) Estimated GFR ( Lashawn > 60 mL/min/1.73m2 (test code = EGFRAA) Estimated GFR (Non Afr Lashawn > 60 mL/min/1.73m2 (test code = EGFRNAA) BUN/Creatinine Ratio (test code 20 ratio 10-20 N = BCRATIO) Glucose (test code = GLU) 66 mg/dL 74-106 L Osmolality,Calculated (test 277.2 code = OSMOC) Calcium (test code = CA) 9.6 mg/dL 8.3-10.6 N Bilirubin,Total (test code = 0.4 mg/dL 0.2-1.1 N BILIT) Aspartate Amino Transferase 14 U/L 0-34 N (test code = AST) Alanine Aminotransferase (test < 7 U/L 10-49 L code = ALT) Total Protein (test code = TP) 7.2 g/dL 5.7-8.2 N Albumin Level (test code = ALB) 4.2 g/dL 3.2-4.8 N Globulin (test code = GLOB) 3.0 mg/dL 2.3-3.5 N Albumin/Globulin Ratio (test 1.4 ratio 0.8-2.0 N code = AGRATIO) Alkaline Phosphatase (test code 110 U/L 46-116 N = ALP) Uric [id number] 16:50:00 Test Item Value Reference Range Interpretation Comments Uric Acid (test code = URIC) 4.5 mg/dL 3.1-7.8 N Lactate [id number] 16:50:00 Test Item Value Reference Range Interpretation Comments Lactate Dehydrogenase (test code = 165 U/L 120-246 N LDH) Rapid Plasma [id number] 16:50:00 Test Item Value Reference Range Interpretation Comments Rapid Plasma Reagin Reactive Non-React A Critical value called (test code = RPR) to travis back by JEAN-PIERRE Werner RN on : 03/31/20 at 230 2by EA170.Lot [id number] 3RT EXP MAR 2021 nitrite, urine, zarzigtnqxwnkovo3658-02-51 10:56:54 Test Item Value Reference Range Interpretation Comments nitrite, urine, semiquantitative (test Neg code = 5802-4) [facility] semiqu[facility] (dipstick)2020-03-24 10:56:54 Test Item Value Reference Range Interpretation Comments protein, urine, semiquantitative Neg (dipstick) (test code = 1753-3) [facility], urine, by test [id number] 10:56:54 Test Item Value Reference Range Interpretation Comments ketones, urine, by test strip (test Neg code = 5797-6) [facility] DNA [id number] 17:43:00 Test Item Value Reference Range Interpretation Comments chlamydia DNA probe (test code = Negative Negative 97985-9) [facility] gonorrhoeae DNA [id number] 17:43:00 Test Item Value Reference Range Interpretation Comments Neisseria gonorrhoeae DNA probe Negative Negative (test code = 80589-9) [facility] DNA [id number] 17:43:00 Test Item Value Reference Range Interpretation Comments Neisseria gonorrhoeae DNA probe Negative Negative (test code = 00886-3) [facility] [id number] 12:01:00 Test Item Value Reference Range Interpretation Comments urine culture (test code = 630-4) [facility] [id number] 12:22:00 Test Item Value Reference Range Interpretation Comments urine culture (test code = Escherichia coli A 630-4) [facility]Treponema pallidum particle agglutination assay (TPPA test)2020-03-01 12:17:00 Test Item Value Reference Range Interpretation Comments Treponema pallidum particle Reactive Non Reactive A agglutination assay (TPPA test) (test code = 47620-4) [facility], [id number] 12:17:00 Test Item Value Reference Range Interpretation Comments rapid plasma reagin 1:16 See_Comment H [Automa michael message] The antibody, serum (test system which generated code = 5291-0) this result t ransmitted reference range : NonRea<1:1. The reference range was not u sed to interpret this result as normal/abnormal . [facility]CM[facility] (Chemiluminescent Microparticle Immuno Assay) 2020-03-01 12:17:00 Test Item Value Reference Range Interpretation Comments HIV-CMIA (Chemiluminescent Non Reactive Non Reactive Microparticle Immuno Assay) (test code = 74553-6) [facility]rubella antibody, serum, [id number] 13:00:00 Test Item Value Reference Range Interpretation Comments rubella antibody, 1.26 (unknown See_Comment [Automat ed message] serum, IgG (test unit) The system which code = 5334-8) generated thi s result transmitted ref erence range: Immune > 0.99. The reference r twyla was not used to interpret this result as normal/abnor mal. [facility]immature granulocytes, percentage of total cells, blood 2020-02-05 13:00:00 Test Item Value Reference Range Interpretation Comments immature granulocytes, percentage of 1 % total cells, blood (test code = 03203-2) [facility]basophil count, idzfxetu1993-72-74 13:00:00 Test Item Value Reference Range Interpretation Comments basophil count, absolute (test 0.0 x10E3/uL 0.0-0.2 code = 18497-0) [facility]osin[facility] Absolute [id number] 13:00:00 Test Item Value Reference Range Interpretation Comments Eosinophil Absolute Count (test 0.1 X10E3/UL 0.0-0.4 code = 85091-9) [facility]monocyte count, blood, dgloqzsjp7760-01-11 13:00:00 Test Item Value Reference Range Interpretation Comments monocyte count, blood, automated 0.4 X10E3/UL 0.1-0.9 (test code = 742-7) [facility]lymphocyte count, blood, yarzpancn6014-26-37 13:00:00 Test Item Value Reference Range Interpretation Comments lymphocyte count, blood, 2.0 X10E3/UL 0.7-3.1 automated (test code = 731-0) [facility] SouthAbsolute Ldajaihbktw1782-33-15 13:00:00 Test Item Value Reference Range Interpretation Comments Absolute Neutrophils (test code 6.3 X10E3/UL 1.4-7.0 = 10355-5) [facility]basophils as percent of blood elrsxmncbq4218-88-08 13:00:00 Test Item Value Reference Range Interpretation Comments basophils as percent of blood 0 % leukocytes (test code = 707-0) [facility] Southeosinophils as percent of blood zuhfimwowh5641-92-75 13:00:00 Test Item Value Reference Range Interpretation Comments eosinophils as percent of blood 1 % leukocytes (test code = 713-8) [facility] Healthmonocytes as percent of blood lzhozzvmvh7111-14-60 13:00:00 Test Item Value Reference Range Interpretation Comments monocytes as percent of blood 5 % leukocytes (test code = 5905-5) [facility]lymph[facility] as percent of blood iprvzrxdxd3766-86-38 13:00:00 Test Item Value Reference Range Interpretation Comments lymphocytes as percent of blood 22 % leukocytes (test code = 736-9) [facility]neutrophils as percent of blood fyhodczlax1716-45-28 13:00:00 Test Item Value Reference Range Interpretation Comments neutrophils as percent of blood 71 % leukocytes (test code = 770-8) [facility] Southplatelet lbpzc8716-00-58 13:00:00 Test Item Value Reference Range Interpretation Comments platelet count (test code = 207 X10E3/UL 150-450 777-3) [facility]red blood cell distribution cvfvx6909-20-74 13:00:00 Test Item Value Reference Range Interpretation Comments red blood cell distribution width 13.1 % 11.7-15.4 (test code = 788-0) [facility] corpuscular hemoglobin concentration, [id number] 13:00:00 Test Item Value Reference Range Interpretation Comments mean corpuscular hemoglobin 34.0 G/DL 31.5-35.7 concentration, RBC (test code = 786-4) [facility] corpuscular hemoglobin, [id number] 13:00:00 Test Item Value Reference Range Interpretation Comments mean corpuscular hemoglobin, RBC 29.8 pg 26.6-33.0 (test code = 785-6) [facility] corpuscular volume, [id number] 13:00:00 Test Item Value Reference Range Interpretation Comments mean corpuscular volume, RBC (test code 88 fL 79-97 = 787-2) [facility]hematocrit, [id number] 13:00:00 Test Item Value Reference Range Interpretation Comments hematocrit, blood (test code = 4544-3) 31.2 % 34.0-46.6 L [facility]hemoglobin, [id number] 13:00:00 Test Item Value Reference Range Interpretation Comments hemoglobin, blood (test code = 10.6 g/dL 11.1-15.9 L 718-7) [facility] Southerythrocyte (RBC) [id number] 13:00:00 Test Item Value Reference Range Interpretation Comments erythrocyte (RBC) count (test 3.56 X10E6/UL 3.77-5.28 L code = 789-8) [facility]leukocyte count, khykc4270-09-18 13:00:00 Test Item Value Reference Range Interpretation Comments leukocyte count, blood (test 8.8 X10E3/UL 3.4-10.8 code = 6690-2) [facility]blood glucose, 1 hour after 50 gm oral [id number] 13:00:00 Test Item Value Reference Range Interpretation Comments blood glucose, 1 hour after 50 gm 94 mg/dL 65-139 oral glucose (test code = 1039) [facility] SouthTreponema pallidum particle agglutination assay (TPPA test)2019-12-15 10:26:00 Test Item Value Reference Range Interpretation Comments Treponema pallidum particle Reactive Non Reactive A agglutination assay (TPPA test) (test code = 83392-3) [facility] antibody, [id number] 10:26:00 Test Item Value Reference Range Interpretation Comments rapid plasma reagin 1:16 See_Comment H [Automa michael message] The antibody, serum (test system which generated code = 5291-0) this result t ransmitted reference range : NonRea<1:1. The reference range was not u sed to interpret this result as normal/abnormal . [facility]hepatitis C antibody, [id number] 10:26:00 Test Item Value Reference Range Interpretation Comments hepatitis C antibody, 0.1 (unknown unit) 0.0-0.9 serum (test code = 79086-2) [facility]he[facility] C antibody, onyuz6002-28-23 10:26:00 Test Item Value Reference Range Interpretation Comments hepatitis C antibody, 0.1 (unknown unit) 0.0-0.9 serum (test code = 5199-5) [facility] mdejaby1849-29-51 18:35:00 Test Item Value Reference Range Interpretation Comments urine culture (test code = 630-4) No growth [facility]urinalysis, microscopic kumnzyfdfag1096-71-47 18:35:00 Test Item Value Reference Range Interpretation Comments urinalysis, microscopic examination MICNIP (test code = 47638-8) [facility]nitrate, yupgf3810-04-13 18:35:00 Test Item Value Reference Range Interpretation Comments nitrate, urine (test code = 29151-5) Negative Negative [facility] Southurobilinogen, urine, semiquantitative (dipstick) 2019-08-31 18:35:00 Test Item Value Reference Range Interpretation Comments urobilinogen, urine, 1.0 (unknown 0.2-1.0 semiquantitative (dipstick) unit) (test code = 5818-0) [facility]bilirubin, [id number] 18:35:00 Test Item Value Reference Range Interpretation Comments bilirubin, urine (test code = Negative Negative 5770-3) [facility] Southketones, urine, by test [id number] 18:35:00 Test Item Value Reference Range Interpretation Comments ketones, urine, by test strip (test Negative Negative code = 5797-6) [facility]glucose, urine, gypouromzzpqfkgn4462-64-17 18:35:00 Test Item Value Reference Range Interpretation Comments glucose, urine, semiquantitative Negative Negative (test code = 5792-7) [facility]protein, urine, semiquantitative (dipstick)2019-08-31 18:35:00 Test Item Value Reference Range Interpretation Comments protein, urine, semiquantitative Negative Negative/Trace (dipstick) (test code = 1753-3) [facility]leukocyte esterase, urine, by ilwerysq5926-83-29 18:35:00 Test Item Value Reference Range Interpretation Comments leukocyte esterase, urine, by Negative Negative dipstick (test code = 5799-2) [facility]appearance, [id number] 18:35:00 Test Item Value Reference Range Interpretation Comments appearance, urine (test code = 5767-9) Clear Clear [facility]urine [id number] 18:35:00 Test Item Value Reference Range Interpretation Comments urine color (test code = 5778-6) Yellow Yellow [facility] SouthpH, urine, izayrstrdqgugfae8006-36-41 18:35:00 Test Item Value Reference Range Interpretation Comments pH, urine, semiquantitative 6.5 (unknown 5.0-7.5 (test code = 5803-2) unit) [facility] Southspecific gravity, body [id number] 18:35:00 Test Item Value Reference Range Interpretation Comments specific gravity, body fluid (test >=1.030 1.005-1.030 A code = 2964-5) [facility] SouthOccult Blood, [id number] 18:35:00 Test Item Value Reference Range Interpretation Comments Occult Blood, urine (test code = Negative Negative ) [facility] Papillomavirus test [id number] 15:55:00 Test Item Value Reference Range Interpretation Comments Human Papillomavirus test result HPVTested (test code = 06663-6) [facility] Papillomavirus test [id number] 15:55:00 Test Item Value Reference Range Interpretation Comments Human Papillomavirus test result HPVTested (test code = 00384-3) [facility]chlamydia DNA [id number] 15:08:00 Test Item Value Reference Range Interpretation Comments chlamydia DNA probe (test code = Negative Negative 39699-2) [facility] SouthNeisseria gonorrhoeae DNA [id number] 15:08:00 Test Item Value Reference Range Interpretation Comments Neisseria gonorrhoeae DNA probe Negative Negative (test code = 05942-2) [facility] SouthNeisseria gonorrhoeae DNA [id number] 15:08:00 Test Item Value Reference Range Interpretation Comments Neisseria gonorrhoeae DNA probe Negative Negative (test code = 44300-1) [facility] SouthTreponema pallidum particle agglutination assay (TPPA test)2019-08-31 13:24:00 Test Item Value Reference Range Interpretation Comments Treponema pallidum particle Reactive Non Reactive A agglutination assay (TPPA test) (test code = 34179-3) [facility] Southrapid plasma reagin antibody, [id number] 13:24:00 Test Item Value Reference Range Interpretation Comments rapid plasma reagin 1:64 See_Comment H [Automa michael message] The antibody, serum (test system which generated code = 5291-0) this result t ransmitted reference range : NonRea<1:1. The reference range was not u sed to interpret this result as normal/abnormal . [facility] Southrubella antibody, serum, [id number] 13:24:00 Test Item Value Reference Range Interpretation Comments rubella antibody, 1.36 (unknown See_Comment [Automat ed message] serum, IgG (test unit) The system which code = 5334-8) generated thi s result transmitted ref erence range: Immune > 0.99. The reference r twyla was not used to interpret this result as normal/abnor mal. [facility] Southimmature granulocytes, percentage of total cells, blood 2019-08-31 13:24:00 Test Item Value Reference Range Interpretation Comments immature granulocytes, percentage of 0 % total cells, blood (test code = 31387-3) [facility]basophil count, mpvmnylz8908-44-57 13:24:00 Test Item Value Reference Range Interpretation Comments basophil count, absolute (test 0.0 x10E3/uL 0.0-0.2 code = 42643-5) [facility] SouthEosinophil Absolute [id number] 13:24:00 Test Item Value Reference Range Interpretation Comments Eosinophil Absolute Count (test 0.0 X10E3/UL 0.0-0.4 code = 66368-2) [facility]monocyte count, blood, vytjbbczq8635-44-88 13:24:00 Test Item Value Reference Range Interpretation Comments monocyte count, blood, automated 0.6 X10E3/UL 0.1-0.9 (test code = 742-7) [facility]lymphocyte count, blood, hrsumyfmq8741-80-45 13:24:00 Test Item Value Reference Range Interpretation Comments lymphocyte count, blood, 2.5 X10E3/UL 0.7-3.1 automated (test code = 731-0) [facility] SouthAbsolute [id number] 13:24:00 Test Item Value Reference Range Interpretation Comments Absolute Neutrophils (test code 6.2 X10E3/UL 1.4-7.0 = 27336-2) [facility] [id number] 13:24:00 Test Item Value Reference Range Interpretation Comments basophils as percent of blood 0 % leukocytes (test code = 707-0) [facility] percent [facility] blood [id number] 13:24:00 Test Item Value Reference Range Interpretation Comments eosinophils as percent of blood 0 % leukocytes (test code = 713-8) [facility] of blood [id number] 13:24:00 Test Item Value Reference Range Interpretation Comments monocytes as percent of blood 6 % leukocytes (test code = 5905-5) [facility] blood [id number] 13:24:00 Test Item Value Reference Range Interpretation Comments lymphocytes as percent of blood 27 % leukocytes (test code = 736-9) [facility] Healthneutrophils as percent of blood [id number] 13:24:00 Test Item Value Reference Range Interpretation Comments neutrophils as percent of blood 67 % leukocytes (test code = 770-8) [facility]let [id number] 13:24:00 Test Item Value Reference Range Interpretation Comments platelet count (test code = 440 X10E3/UL 150-450 777-3) [facility] distribution [id number] 13:24:00 Test Item Value Reference Range Interpretation Comments red blood cell distribution width 13.5 % 11.7-15.4 (test code = 788-0) [facility] corpuscular hemoglobin concentration, [id number] 13:24:00 Test Item Value Reference Range Interpretation Comments mean corpuscular hemoglobin 33.0 G/DL 31.5-35.7 concentration, RBC (test code = 786-4) [facility] corpuscular hemoglobin, [id number] 13:24:00 Test Item Value Reference Range Interpretation Comments mean corpuscular hemoglobin, RBC 27.8 pg 26.6-33.0 (test code = 785-6) [facility], [id number] 13:24:00 Test Item Value Reference Range Interpretation Comments mean corpuscular volume, RBC (test code 84 fL 79-97 = 787-2) [facility], [id number] 13:24:00 Test Item Value Reference Range Interpretation Comments hematocrit, blood (test code = 4544-3) 35.2 % 34.0-46.6 [facility]oglobin, [id number] 13:24:00 Test Item Value Reference Range Interpretation Comments hemoglobin, blood (test code = 11.6 g/dL 11.1-15.9 718-7) [facility]her[facility]throcyte (RBC) [id number] 13:24:00 Test Item Value Reference Range Interpretation Comments erythrocyte (RBC) count (test 4.18 X10E6/UL 3.77-5.28 code = 789-8) [facility]uk[facility] count, [id number] 13:24:00 Test Item Value Reference Range Interpretation Comments leukocyte count, blood (test 9.4 X10E3/UL 3.4-10.8 code = 6690-2) [facility]hepatitis B surface [id number] 13:24:00 Test Item Value Reference Range Interpretation Comments hepatitis B surface antigen (test Negative Negative code = 27391-9) [facility]HIV[facility]CMIA (Chemiluminescent Microparticle Immuno Assay) 2019-08-31 13:24:00 Test Item Value Reference Range Interpretation Comments HIV-CMIA (Chemiluminescent Non Reactive Non Reactive Microparticle Immuno Assay) (test code = 37180-5) [facility]Rh [id number] 13:24:00 Test Item Value Reference Range Interpretation Comments Rh antibody (test code = 256) Negative Negative [facility] [id number] 13:24:00 Test Item Value Reference Range Interpretation Comments Rh antigen (test code = 255) Positive [facility]ABO blood [id number] 13:24:00 Test Item Value Reference Range Interpretation Comments ABO blood group (test code = 116) O [facility]nitrite, urine, [id number] 11:51:19 Test Item Value Reference Range Interpretation Comments nitrite, urine, semiquantitative (test Neg code = 5802-4) [facility]ketones, urine, by test [id number] 11:51:19 Test Item Value Reference Range Interpretation Comments ketones, urine, by test strip (test Neg code = 5797-6) [facility]protein, urine, semiquantitative (dipstick)2019-08-31 11:51:19 Test Item Value Reference Range Interpretation Comments protein, urine, semiquantitative Neg (dipstick) (test code = 1753-3) [facility]beta HCG, urine, [id number] 11:51:19 Test Item Value Reference Range Interpretation Comments beta HCG, urine, semiquantitative positive (test code = 2106-3) [facility]pregnancy test, [id number] 11:51:19 Test Item Value Reference Range Interpretation Comments test, type (test code = home 6-3) [facility]Herpes Simplex Virus [id number] 11:51:19 Test Item Value Reference Range Interpretation Comments Herpes Simplex Virus Genital (test code no = 5856-0) [facility]
--- NOTE | 2022-12-05 22:22 | EDPHYS ---
Physician Documentation [facility] Name: Moo Matthews Age: 31 yrs Sex: Female : 1990 Arrival Date: 12/05/2022 Time: 21:46 Bed 8 Private MD: ED Physician Twin Gutierrez HPI: 12/05 22:15 This 31 yrs old Black Female presents to ER via Ambulatory with complaints of Sinus cp Pain, Ear Pain, Jaw Pain, Headache. 22:15 The patient presents with pain. The problem is located in the left and right upper jaw. cp Onset: The symptoms/episode began/occurred 3 day(s) ago. The patient complains of pain to the top of head and forehead. Associated signs and symptoms: Pertinent positives: sinus tenderness, ear pain, Pertinent negatives: fever, neck stiffness, sinus congestion, vision changes, vomiting, weakness. 22:15 Severity of symptoms: in the emergency department the pain is unchanged, despite home cp interventions. Historical: - Allergies: 21:56 No Known Allergies; cm10 - Home Meds: 21:56 None [Active]; cm10 - PMHx: 21:56 None; cm10 - PSHx: 21:56 None; cm10 - Immunization history:: Adult Immunizations unknown. - Social history:: Smoking status: Patient denies any tobacco usage or history of. ROS: 22:20 Constitutional: Negative for body aches, chills, fever, poor PO intake, cp 22:20 Eyes: Negative for injury, pain, redness, and discharge, cp 22:20 ENT: Positive for dental pain, ear pain, sinus pain, upper jaw pain, Negative for drainage from ear(s), sore throat, difficulty swallowing, difficulty handling secretions, 22:20 Cardiovascular: Negative for chest pain, 22:20 Respiratory: Negative for cough, shortness of breath, wheezing, 22:20 Neuro: Positive for headache, Negative for altered mental status, dizziness, weakness, 22:20 All other systems are negative, Exam: 22:21 Head/Face: Normocephalic, atraumatic. cp 22:21 Constitutional: The patient appears in no acute distress, alert, awake, non-toxic, well developed, well nourished, 22:21 Eyes: Periorbital structures: appear normal, Pupils: equal, round, and reactive to light and accomodation, Extraocular movements: intact throughout, Conjunctiva: normal, no exudate, no injection, Sclera: no appreciated abnormality, Lids and lashes: appear normal, bilaterally, 22:21 ENT: External ear(s): are unremarkable, Ear canal(s): are normal, clear, TM's: dullness, bilaterally, Nose: is normal, Mouth: Lips: moist, Oral mucosa: pink and intact, moist, Posterior pharynx: is normal, airway is patent, no erythema, no exudate, Dental exam: abscess, is not appreciated, dental caries, that is moderate, specifically in the left upper and right upper jaw, pain, that is mild, diffusely, Voice: is normal, 22:21 Neck: ROM/movement: is normal, is supple, without pain, no range of motions limitations, 22:21 Chest/axilla: Inspection: normal, 22:21 Cardiovascular: Rate: normal, Rhythm: regular, 22:21 Respiratory: the patient does not display signs of respiratory distress, Respirations: normal, no use of accessory muscles, no retractions, labored breathing, is not present, Breath sounds: are clear throughout, no decreased breath sounds, no stridor, no wheezing, 22:21 Abdomen/GI: Inspection: abdomen appears normal, 22:21 Neuro: Orientation: to person, place \T\ time. Mentation: is normal, Motor: moves all fours, strength is normal, Gait: is steady, Vital Signs: 21:54 BP 145 / 104; Pulse 80; Resp 18; Temp 98.6; Pulse Ox 100% on R/A; Weight 68.95 kg; cm10 Height 5 ft. 2 in. ; Pain 9/10; 21:54 Body Mass Index 27.80 (68.95 kg, 157.48 cm) cm10 21:54 Pain Scale: Adult cm10 MDM: 22:00 Patient medically screened. cp 22:20 Differential diagnosis: dental caries, dental abscess, meningitis, meningoencephalitis, cp migraine, sinusitis. 22:22 Data reviewed: vital signs, nurses notes. cp 22:22 I considered the following discharge prescriptions or medication management in the cp emergency department Medications were administered in the Emergency Department. See MAR. Counseling: I had a detailed discussion with the patient and/or guardian regarding the historical points, exam findings, and any diagnostic results supporting the discharge/admit diagnosis, the need for outpatient follow up, for definitive care, a dentist, to return to the emergency department if symptoms worsen or persist or if there are any questions or concerns that arise at home. Response to treatment: the patient's symptoms have mildly improved after treatment, and as a result, I will discharge patient. Administered Medications: 22:10 Drug: Amoxicillin-Clavulanate PO Chewable Tablet 800 mg PO once Route: PO; ha1 22:35 Follow up: Response: No adverse reaction ha1 22:10 Drug: Ketorolac IM 30 mg IM once Route: IM; Site: left deltoid; ha1 22:35 Follow up: Response: No adverse reaction; Pain is decreased ha1 Disposition Summary: 12/05/22 22:22 Discharge Ordered Notes: Location: Home cp Problem: new cp Symptoms: have improved cp Condition: Stable cp Diagnosis - Disorder of teeth and supporting structures, unspecified cp - Otitis media in diseases classified elsewhere, bilateral cp - Headache cp Followup: cp - With: Private Physician - When: 2 - 3 days - Reason: Worsening of condition Discharge Instructions: - Discharge Summary Sheet cp - Dental Pain cp - Otitis Media, Adult cp - General Headache Without Cause cp Forms: - Medication Reconciliation Form cp - Thank You Letter cp - Antibiotic Education cp - Prescription Opioid Use cp - Patient Portal Instructions cp - Leadership Thank You Letter cp - Work release form 1 Prescriptions: - Augmentin 875-125 mg Oral Tablet - take 1 tablet ORAL route every 12 hours for 10 days; 20 tablet; Refills: 0, cp Product Selection Permitted - Ibuprofen 800 mg Oral Tablet - take 1 tablet ORAL route every 8 hours As needed take with food; 30 tablet; cp Refills: 0, Product Selection Permitted Signatures: Jhonny Whaley PA PA cp Lety Newell RN RN ha1 Shari Guerrero RN RN cm10 Corrections: (The following items were deleted from the chart) 12/06 22:03 12/05 22:15 Associated signs and symptoms: Pertinent positives: ear pain, Pertinent cp negatives: fever, neck stiffness, sinus congestion, sinus tenderness, vision changes, vomiting, weakness, cp 12/06 22:08 12/05 22:25 Constitutional: The patient appears in no acute distress, alert, awake, cp non-toxic, well developed, well nourished, cp 12/06 22:08 12/05 22:25 Head/Face: Normocephalic, atraumatic. cp cp 12/06 22:08 12/05 22:25 Eyes: Periorbital structures: appear normal, Pupils: equal, round, and cp reactive to light and accomodation, Extraocular movements: intact throughout, Conjunctiva: normal, no exudate, no injection, Sclera: no appreciated abnormality, Lids and lashes: appear normal, bilaterally, cp 12/06 22:12/05 22:25 ENT: External ear(s): are unremarkable, Ear canal(s): are normal, clear, cp TM's: dullness, bilaterally, Nose: is normal, Mouth: Lips: moist, Oral mucosa: pink and intact, moist, Posterior pharynx: is normal, airway is patent, no erythema, no exudate, Dental exam: abscess, is not appreciated, dental caries, that is moderate, specifically in the left upper and right upper jaw, pain, that is mild, diffusely, Voice: is normal, cp 12/06 22:08 12/05 22:25 Neck: ROM/movement: is normal, is supple, without pain, no range of motions cp limitations, cp 12/06 22:08 12/05 22:25 Chest/axilla: Inspection: normal, cp cp 12/06 21:08 12/05 22:25 Cardiovascular: Rate: normal, Rhythm: regular, cp cp 12/06 22:08 12/05 22:25 Respiratory: the patient does not display signs of respiratory distress, cp Respirations: normal, no use of accessory muscles, no retractions, labored breathing, is not present, Breath sounds: are clear throughout, no decreased breath sounds, no stridor, no wheezing, cp 12/06 22:08 12/05 22:25 Abdomen/GI: Inspection: abdomen appears normal, cp cp 12/06 22:08 12/05 22:25 Neuro: Orientation: to person, place \T\ time. Mentation: is normal, Motor: cp moves all fours, strength is normal, Gait: is steady, cp
--- NOTE | 2022-12-05 22:22 | ER ---
Nurse's Notes [facility] Name: Moo Matthews Age: 31 yrs Sex: Female : 1990 Arrival Date: 12/05/2022 Time: 21:46 Bed 8 Private MD: Diagnosis: Disorder of teeth and supporting structures, unspecified;Otitis media in diseases classified elsewhere, bilateral;Headache Presentation: 12/05 21:54 Chief complaint: Patient states: left ear pain and jaw pain onset 2-3 days ago. Pt also cm10 reports headache. Coronavirus screen: Vaccine status: Patient reports being unvaccinated. Client denies travel out of the [place] in the last 14 days. Ebola Screen: Patient denies travel to an Ebola-affected area in the 21 days before illness onset. No symptoms or risks identified at this time. Initial Sepsis Screen: Does the patient meet any 2 criteria? No. Patient's initial sepsis screen is negative. Does the patient have a suspected source of infection? No. Patient's initial sepsis screen is negative. Risk Assessment: Do you want to hurt yourself or someone else? Patient reports no desire to harm self or others. Onset of symptoms was December 05, 2022. 21:54 Method Of Arrival: Ambulatory cm10 21:54 Acuity: ALESIA 3 cm10 Triage Assessment: 21:56 Headache History: The patient has had previous headaches. General: Appears in no cm10 apparent distress. comfortable, Behavior is calm, cooperative. Neuro: No deficits noted. Level of Consciousness is awake, alert, obeys commands, Oriented to person, place, time, situation. Respiratory: No deficits noted. Airway is patent Respiratory effort is even, unlabored, Respiratory pattern is regular, symmetrical. 22:36 Pain: Pain began gradually, Also complains of no other associated symptoms. ha1 Historical: - Allergies: 21:56 No Known Allergies; cm10 - Home Meds: 21:56 None [Active]; cm10 - PMHx: 21:56 None; cm10 - PSHx: 21:56 None; cm10 - Immunization history:: Adult Immunizations unknown. - Social history:: Smoking status: Patient denies any tobacco usage or history of. Screenin:00 [facility] ED Fall Risk Assessment (Adult) History of falling in the last 3 months, ha1 including since admission No falls in past 3 months (0 pts) Confusion or Disorientation No (0 pts) Intoxicated or Sedated No (0 pts) Impaired Gait No (0 pts) Mobility Assist Device Used No (0 pt) Altered Elimination No (0 pt) Score/Fall Risk Level 0 - 2 = Low Risk Oriented to surroundings, Maintained a safe environment, Hourly rounding (assess needs \T\ fall precautionary measures) done. Abuse screen: Denies threats or abuse. Denies injuries from another. Nutritional screening: No deficits noted. Tuberculosis screening: No symptoms or risk factors identified. Assessment: 22:00 General: Appears comfortable, Behavior is calm, cooperative. Pain: Complains of pain in ha1 right ear Pain does not radiate. Pain currently is 6 out of 10 on a pain scale. Neuro: Level of Consciousness is awake, alert, obeys commands, Oriented to person, place, time, situation. Cardiovascular: Patient's skin is warm and dry. Respiratory: Airway is patent Respiratory effort is even, unlabored, Respiratory pattern is regular, symmetrical. Derm: Skin is pink, warm \T\ dry. Musculoskeletal: Circulation, motion, and sensation intact. Range of motion: intact in all extremities. Vital Signs: 21:54 BP 145 / 104; Pulse 80; Resp 18; Temp 98.6; Pulse Ox 100% on R/A; Weight 68.95 kg; cm10 Height 5 ft. 2 in. ; Pain 9/10; 21:54 Body Mass Index 27.80 (68.95 kg, 157.48 cm) cm10 21:54 Pain Scale: Adult cm10 ED Course: 21:50 Patient arrived in ED. jj6 21:51 Jhonny Whaley PA is PHCP. cp 21:51 Twin Gutierrez MD is Attending Physician. cp 21:56 Triage completed. cm10 21:56 Arm band placed on Patient placed in an exam room, on a stretcher. cm10 22:00 Patient has correct armband on for positive identification. Placed in gown. Bed in low ha1 position. Call light in reach. Side rails up X 1. 22:36 No provider procedures requiring assistance completed. Patient did not have IV access ha1 during this emergency room visit. Administered Medications: 22:10 Drug: Amoxicillin-Clavulanate PO Chewable Tablet 800 mg PO once Route: PO; ha1 22:35 Follow up: Response: No adverse reaction ha1 22:10 Drug: Ketorolac IM 30 mg IM once Route: IM; Site: left deltoid; ha1 22:35 Follow up: Response: No adverse reaction; Pain is decreased ha1 Medication: 22:36 VIS not applicable for this client. ha1 Outcome: :22 Discharge ordered by . cp 22:37 Discharged to home ambulatory, ha1 22:37 Condition: stable 22:37 Discharge instructions given to patient, Instructed on discharge instructions, follow up and referral plans. medication usage, Demonstrated understanding of instructions, follow-up care, medications, Prescriptions given X 2, 22:38 Patient left the ED. ha1 Signatures: Jhonny Whaley PA PA cp Jeffries, Jennifer jj6 Lety Newell RN RN ha1 Shari Guerrero RN RN cm10
[2022-12-05] MEDS ORDERED: KETOROLAC 30 MG/ML INJ ONE (22:25)
[2022-12-05] MEDS ORDERED: AMOX TR/K CLAV 400MG CHEW TAB PO ONE (22:25)
[2022-12-06 01:35] VITALS: BP 145/104; TEMP 98.6; O2SAT 100
== END 2022-12-05 22:38 | disposition home or self-care (01) ==
LOC: ER 21:46
DX: K08.89 Other specified disorders of teeth and supporting structures (principal); H66.93 Otitis media, unspecified, bilateral; R51.9 Headache, unspecified
CPT/HCPCS: 96372; 99284

== ENCOUNTER 2024-01-12 18:09 | Emergency (ER) | payer OTHER ==
--- NOTE | 2024-01-12 18:59 | RAD REPORT ---
Exam:Wrist Right 3 View HISTORY: Right wrist pain FINDINGS: No fracture or dislocation seen If the patient continues to have symptoms to suggest an occult fracture then follow-up x-ray in 7 day s would be recommended
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
[2024-01-12 20:15] VITALS: O2SAT 100
[2024-01-12 20:16] VITALS: BP 121/77; TEMP 98.7
== END 2024-01-12 19:28 | disposition home or self-care (01) ==
LOC: ER 18:09
DX: O9A.213 Injury, poisoning and certain other consequences of external causes complicating pregnancy, third trimester (principal); S63.501A Unspecified sprain of right wrist, initial encounter; Z3A.29 29 weeks gestation of pregnancy
CPT/HCPCS: 99284